=== PATIENT | male | born 1960 | race African-American/Black ===

== ENCOUNTER 2018-05-24 08:04 | Inpatient (IN) | payer MEDICAID ==
[~2018-05-24] VITALS: Ht 182.9 cm; Wt 177.4 kg
[~2018-05-24 08:04] MED LIST: ASPI-986 PO; ATOR-2 PO; CARV25TA47 PO; FERR-63 PO; FURO80TA3 PO; INS7030 SUBCUT
[2018-05-24] MEDS ORDERED: ALBUTEROL (0.5%) 2.5MG/0.5ML NEB HHN ONE (08:30)
[2018-05-24] MEDS ORDERED: IPRATROPIUM BROMIDE (0.02%) 0.5MG/2.5ML NEB HHN ONE (08:30)
[2018-05-24] MEDS ORDERED: ALBUTEROL (0.083%) 2.5MG/3ML NEB ONE ×2 (08:30→09:54)
[2018-05-24] MEDS ORDERED: ALBUTEROL (0.083%) 2.5MG/3ML NEB HHN ONE ×2 (08:30→09:45)
[2018-05-24] MEDS ORDERED: IPRATROPIUM BROMIDE (0.02%) 0.5MG/2.5ML NEB ONE (08:31)
[2018-05-24 08:50] LABS: BASOPHILS % 0.6 % (0.0-2.0); EOSINOPHILS % 3.1 % (0.0-5.0); HEMATOCRIT. 31.8 % (42.0-52.0); HEMOGLOBIN. 10.5 g/dL (14.0-18.0); LYMPHOCYTES % 33.5 % (20.0-50.0); MEAN CORPUSCULAR HEMOGLOBIN 30.5 pg (28.0-32.0); MEAN CORPUSCULAR VOLUME 92.2 fL (80.0-94.0); MONOCYTES % 4.2 % (2.0-8.0); NEUTROPHILS % 58.6 % (40.0-76.0); PLATELET 562 x1000/uL (130-400); RED BLOOD CELL COUNT 3.45 mill/uL (4.7-6.1); RED CELL DISTRIBUTION WIDTH 13.9 % (11.6-14.6)
[2018-05-24 08:52] LABS: CHLORIDE 108 mEq/L (98-107)
[2018-05-24] MEDS ORDERED: SODIUM BICARBONATE 8.4% 1 MEQ/ML 50ML SYR IV ONE (09:45)
[2018-05-24] MEDS ORDERED: INSULIN REGULAR (HUMULIN R) 300UNITS/3ML IV ONE (09:45)
[2018-05-24] MEDS ORDERED: FUROSEMIDE 100MG/10ML VIAL IV ONE (09:45)
[2018-05-24] MEDS ORDERED: METHYLPREDNISOLONE SOD SUCC 125 MG/2 ML VIAL IV ONE (09:45)
[2018-05-24 10:45] LABS: BG BASE EXCESS -1.5 mmol/L (-2.0-2.0); BG BILEVEL POS AIRWAY PRESSURE 24/5; BG CARBOXYHEMOGLOBIN 0.3 % (0.5-1.5); BG DEOXYHEMOGLOBIN 0.7 % (0.0-5.0); BG FRACTION INSPIRED OXYGEN 75; BG HCO3 ACT 24.1 mmol/L (22.0-26.0); BG METHEMOGLOBIN 0.8 % (0.0-1.5); BG OXYGEN SATURATION 99.3 % (92.0-98.5); BG OXYHEMOGLOBIN 98.2 % (94.0-97.0); BG PCO2 44.2 mmHg (35.0-45.0); BG PH 7.354 (7.350-7.450); BG PO2 266.1 mmHg (75.0-100.0); BG SAMPLE SITE RIGHT RADIAL; BG VENT MODE MASK - BIPAP
[2018-05-24 13:12] LABS: CHLORIDE 109 mEq/L (98-107)
[2018-05-24 17:00] VITALS: BP 166/87
[2018-05-24 20:00] VITALS: BP 114/72
[2018-05-24] MEDS ORDERED: ENOXAPARIN 40MG/0.4ML SYR SUBCUT SCH (21:45)
[2018-05-24] MEDS ORDERED: IPRATROPIUM/ALBUTEROL 0.5-3(2.5)MG/3ML NEB INH PRN (21:45)
[2018-05-24] MEDS ORDERED: CARVEDILOL 25MG TABLET PO SCH (21:45)
[2018-05-24] MEDS ORDERED: ONDANSETRON HCL 4MG/2ML INJ IV PRN (21:45)
[2018-05-24] MEDS ORDERED: GUAIFENESIN/CODEINE 200-20MG/10ML UDC PO PRN (21:45)
[2018-05-24] MEDS ORDERED: ACETAMINOPHEN 325MG TABLET PO PRN (21:45)
[2018-05-24 22:00] VITALS: BP 114/72
[2018-05-24] MEDS: ATORVASTATIN CALCIUM 40MG TABLET PO SCH (22:14)
[2018-05-24] MEDS: FERROUS SULFATE 325MG TABLET PO SCH (22:14)
[2018-05-24] MEDS ORDERED: DEXTROSE 50% WATER 50ML SYRINGE IV PRN (22:30)
[2018-05-24 23:24] LABS: CREATINE KINASE MB FRACTION 2.4 ng/mL (0.5-3.6)
[2018-05-25] VITALS (7 sets, daily range): BP systolic 112–165; BP diastolic 52–93
[2018-05-25] MEDS: METHYLPREDNISOLONE SOD SUCC 40 MG/ML VIAL IV SCH ×3 (01:14→11:48)
[2018-05-25] MEDS: BLOOD SUGAR DIAGNOSTIC STRIP TEST SCH ×4 (06:06→21:00)
[2018-05-25] MEDS: INSULIN LISPRO 100 UNITS/ML SUBCUT SCH ×5 (06:07→22:20)
[2018-05-25 06:16] LABS: BASOPHILS % 0.1 % (0.0-2.0); HEMATOCRIT. 30.2 % (42.0-52.0); HEMOGLOBIN. 9.9 g/dL (14.0-18.0); MEAN CORPUSCULAR VOLUME 91.6 fL (80.0-94.0); MEAN PLATELET VOLUME 7.6 fl (7.4-10.4); MONOCYTES % 1.8 % (2.0-8.0); NEUTROPHILS % 89.1 % (40.0-76.0); PLATELET 463 x1000/uL (130-400); RED CELL DISTRIBUTION WIDTH 13.5 % (11.6-14.6)
[2018-05-25 06:50] LABS: CHLORIDE 106 mEq/L (98-107)
[2018-05-25 07:08] LABS: CREATINE KINASE 65 IU/L (39-308)
[2018-05-25 07:10] LABS: CREATINE KINASE MB FRACTION 2.2 ng/mL (0.5-3.6)
[2018-05-25] MEDS: INS NPH/REG HM 70-30 100 UNITS/ML 10ML VIAL (HUMULIN 70-30) SUBCUT SCH ×2 (09:50→18:05)
[2018-05-25] MEDS: ASPIRIN 81MG TABLET PO SCH (09:50)
[2018-05-25] MEDS: CLONIDINE 0.1MG TABLET PO PRN ×2 (09:54→18:11)
[2018-05-25] MEDS: CARVEDILOL 12.5MG TABLET PO SCH ×2 (09:55→22:07)
[2018-05-25] MEDS: ENOXAPARIN 40MG/0.4ML SYR SUBCUT SCH ×2 (09:56→22:07)
[2018-05-25] MEDS: FERROUS SULFATE 325MG TABLET PO SCH (10:00)
[2018-05-25] MEDS ORDERED: DEXTROSE 50% WATER 50ML SYRINGE IV PRN (14:00)
[2018-05-25] MEDS ORDERED: INSULIN LISPRO 100 UNITS/ML SUBCUT SCH (14:30)
[2018-05-25] MEDS ORDERED: BLOOD SUGAR DIAGNOSTIC STRIP TEST SCH (16:45)
[2018-05-25 19:04] LABS: BG BASE EXCESS 0.1 mmol/L (-2.0-2.0); BG CARBOXYHEMOGLOBIN 0.3 % (0.5-1.5); BG DEOXYHEMOGLOBIN 4.7 % (0.0-5.0); BG FRACTION INSPIRED OXYGEN 21; BG HCO3 ACT 25.6 mmol/L (22.0-26.0); BG METHEMOGLOBIN 0.4 % (0.0-1.5); BG OXYGEN SATURATION 95.3 % (92.0-98.5); BG OXYHEMOGLOBIN 94.6 % (94.0-97.0); BG PCO2 45.1 mmHg (35.0-45.0); BG PH 7.372 (7.350-7.450); BG PO2 77.3 mmHg (75.0-100.0); BG SAMPLE SITE OTHER; BG TOTAL HEMOGLOBIN 10.7 g/dL (12.0-18.0); BG VENT MODE ROOM AIR
[2018-05-25] MEDS: ATORVASTATIN CALCIUM 40MG TABLET PO SCH (22:06)
[2018-05-26] VITALS: BP 145/80
[2018-05-26 04:00] VITALS: BP 148/85
[2018-05-26] MEDS: BLOOD SUGAR DIAGNOSTIC STRIP TEST SCH ×2 (06:01→12:40)
[2018-05-26] MEDS: INSULIN LISPRO 100 UNITS/ML SUBCUT SCH ×4 (06:18→13:03)
[2018-05-26 06:47] LABS: BASOPHILS % 0.2 % (0.0-2.0); HEMATOCRIT. 29.8 % (42.0-52.0); HEMOGLOBIN. 9.6 g/dL (14.0-18.0); LYMPHOCYTES % 16.9 % (20.0-50.0); MEAN CORPUSCULAR HEMOGLOBIN 29.7 pg (28.0-32.0); MEAN CORPUSCULAR VOLUME 92.5 fL (80.0-94.0); MEAN PLATELET VOLUME 7.5 fl (7.4-10.4); MONOCYTES % 5.6 % (2.0-8.0); NEUTROPHILS % 77.3 % (40.0-76.0); PLATELET 479 x1000/uL (130-400); RED BLOOD CELL COUNT 3.22 mill/uL (4.7-6.1); RED CELL DISTRIBUTION WIDTH 13.5 % (11.6-14.6)
[2018-05-26 07:08] LABS: CHLORIDE 105 mEq/L (98-107)
[2018-05-26 08:00] VITALS: BP 155/92
[2018-05-26] MEDS: INS NPH/REG HM 70-30 100 UNITS/ML 10ML VIAL (HUMULIN 70-30) SUBCUT SCH (08:47)
[2018-05-26] MEDS: ASPIRIN 81MG TABLET PO SCH (08:59)
[2018-05-26] MEDS: FERROUS SULFATE 325MG TABLET PO SCH (08:59)
[2018-05-26] MEDS: ENOXAPARIN 40MG/0.4ML SYR SUBCUT SCH (09:00)
[2018-05-26] MEDS ORDERED: PREDNISONE 20MG TABLET PO SCH (09:00)
[2018-05-26] MEDS: CARVEDILOL 12.5MG TABLET PO SCH (09:00)
[2018-05-26 12:00] VITALS: BP 150/90
[2018-05-26 16:04] VITALS: BP 154/83
== END 2018-05-26 17:45 | disposition home or self-care (01) | DRG 190 ==
LOC: ER 08:44 → EDBEDREQTM 10:11 → EDBEDREQ 10:11 → 5WST 10:49 → EDBEDREQSVC 10:51 → EDBEDREQTM 10:51 → ENRESERV 12:35
PROVIDERS: ADMIT Internal Medicine; ATTEND Internal Medicine
PROC: 5A09357 Assistance with Respiratory Ventilation, Less than 24 Consecutive Hours, Continuous Positive Airway Pressure (ICD-10-PCS; principal; 2018-05-24)
DX: I21.4 Non-ST elevation (NSTEMI) myocardial infarction (principal); J96.00 Acute respiratory failure, unspecified whether with hypoxia or hypercapnia; I50.43 Acute on chronic combined systolic (congestive) and diastolic (congestive) heart failure; E87.4 Mixed disorder of acid-base balance; K31.84 Gastroparesis; E11.51 Type 2 diabetes mellitus with diabetic peripheral angiopathy without gangrene; E11.43 Type 2 diabetes mellitus with diabetic autonomic (poly)neuropathy; E87.5 Hyperkalemia; E11.65 Type 2 diabetes mellitus with hyperglycemia; I11.0 Hypertensive heart disease with heart failure; I49.3 Ventricular premature depolarization; J44.1 Chronic obstructive pulmonary disease with (acute) exacerbation; G47.33 Obstructive sleep apnea (adult) (pediatric); E66.09 Other obesity due to excess calories; E78.5 Hyperlipidemia, unspecified; I25.10 Atherosclerotic heart disease of native coronary artery without angina pectoris; I25.5 Ischemic cardiomyopathy; K21.9 Gastro-esophageal reflux disease without esophagitis; Z68.42 Body mass index [BMI] 45.0-49.9, adult; I25.2 Old myocardial infarction; Z79.82 Long term (current) use of aspirin; Z79.4 Long term (current) use of insulin; Z79.899 Other long term (current) drug therapy; Z89.512 Acquired absence of left leg below knee; Z95.5 Presence of coronary angioplasty implant and graft; Z68.43 Body mass index [BMI] 50.0-59.9, adult
CPT/HCPCS: 36415; 36600; 71045; 80048; 82375; 82550; 82553; 82805; 82962; 83036; 83880; 84484; 93005; 93306; 93970; 96374; 96375; 99291; J1650; J1815; J1940; J2920; J2930; J3490; J7512; J7611; J7620

== ENCOUNTER 2018-07-05 07:14 | Emergency (ER) | payer MEDICAID ==
[~2018-07-05] VITALS: Ht 182.9 cm; Wt 153.0 kg
[2018-07-05] MEDS ORDERED: ALBUTEROL (0.083%) 2.5MG/3ML NEB HHN STA (07:38)
[2018-07-05 08:08] LABS: BASOPHILS % 1.1 % (0.0-2.0); EOSINOPHILS % 2.3 % (0.0-5.0); HEMATOCRIT. 31.4 % (42.0-52.0); HEMOGLOBIN. 10.3 g/dL (14.0-18.0); LYMPHOCYTES % 36.1 % (20.0-50.0); MEAN CORPUSCULAR HEMOGLOBIN 29.9 pg (28.0-32.0); MEAN CORPUSCULAR VOLUME 91.6 fL (80.0-94.0); MEAN PLATELET VOLUME 7.4 fl (7.4-10.4); MONOCYTES % 5.5 % (2.0-8.0); PLATELET 380 x1000/uL (130-400); RED BLOOD CELL COUNT 3.43 mill/uL (4.7-6.1); RED CELL DISTRIBUTION WIDTH 13.3 % (11.6-14.6)
[2018-07-05 08:12] LABS: CHLORIDE 102 mEq/L (98-107)
[2018-07-05] MEDS ORDERED: FUROSEMIDE 20MG/2ML VIAL IVP ONE (11:00)
[2018-07-05 11:20] VITALS: BP 143/53
== END 2018-07-05 12:34 | disposition home or self-care (01) ==
LOC: ER 07:14
DX: R06.00 Dyspnea, unspecified (principal); J44.9 Chronic obstructive pulmonary disease, unspecified; I11.0 Hypertensive heart disease with heart failure; I50.9 Heart failure, unspecified; E11.9 Type 2 diabetes mellitus without complications; Z79.82 Long term (current) use of aspirin
CPT/HCPCS: 36415; 71045; 80048; 82962; 83880; 84484; 85025; 93005; 94640; 96374; 99284; J1940; J7611; Z7610

== ENCOUNTER 2018-09-03 14:24 | Inpatient (IN) | payer MEDICAID ==
[~2018-09-03] VITALS: Ht 182.9 cm; Wt 166.9 kg
[2018-09-03] MEDS ORDERED: ALBUTEROL (0.083%) 2.5MG/3ML NEB HHN STA (14:44)
[2018-09-03] MEDS ORDERED: METHYLPREDNISOLONE SOD SUCC 125 MG/2 ML VIAL IV STA (14:44)
[2018-09-03] MEDS ORDERED: IPRATROPIUM BROMIDE (0.02%) 0.5MG/2.5ML NEB HHN STA (14:44)
[2018-09-03] MEDS ORDERED: ALBUTEROL (0.5%) 2.5MG/0.5ML NEB HHN ONE (14:54)
[2018-09-03 15:13] LABS: BASOPHILS % 0.6 % (0.0-2.0); EOSINOPHILS % 3.8 % (0.0-5.0); HEMOGLOBIN. 9.1 g/dL (14.0-18.0); LYMPHOCYTES % 28.3 % (20.0-50.0); MEAN CORPUSCULAR HEMOGLOBIN 30.5 pg (28.0-32.0); MEAN CORPUSCULAR VOLUME 93.8 fL (80.0-94.0); MONOCYTES % 4.3 % (2.0-8.0); PLATELET 419 x1000/uL (130-400); RED BLOOD CELL COUNT 2.99 mill/uL (4.7-6.1); RED CELL DISTRIBUTION WIDTH 13.3 % (11.6-14.6)
[2018-09-03 15:18] LABS: CHLORIDE 105 mEq/L (98-107)
[2018-09-03] MEDS ORDERED: FUROSEMIDE 20MG/2ML VIAL IVP ONE (15:45)
[2018-09-03] MEDS ORDERED: ENALAPRIL 2.5MG/2ML VIAL 2ML IV ONE (15:45)
[2018-09-03 15:54] LABS: BG BASE EXCESS -1.3 mmol/L (-2.0-2.0); BG BILEVEL POS AIRWAY PRESSURE 15/5; BG CARBOXYHEMOGLOBIN 0.3 % (0.5-1.5); BG DEOXYHEMOGLOBIN 2.1 % (0.0-5.0); BG FRACTION INSPIRED OXYGEN 40; BG METHEMOGLOBIN 0.2 % (0.0-1.5); BG OXYGEN SATURATION 97.9 % (92.0-98.5); BG OXYHEMOGLOBIN 97.4 % (94.0-97.0); BG PCO2 42.8 mmHg (35.0-45.0); BG PH 7.367 (7.350-7.450); BG PO2 112.6 mmHg (75.0-100.0); BG SAMPLE SITE RIGHT RADIAL; BG TOTAL HEMOGLOBIN 10.1 g/dL (12.0-18.0); BG VENT MODE MASK - BIPAP; BG VENT RATE 16 set
[2018-09-03] MEDS ORDERED: ENOXAPARIN 40MG/0.4ML SYR SUBCUT SCH (16:15)
[2018-09-03] MEDS ORDERED: CLONIDINE 0.1MG TABLET PO PRN (16:15)
[2018-09-03] MEDS ORDERED: HYDROCODONE/ACETAMINOPHEN 5/325MG TABLET PO PRN (16:15)
[2018-09-03] MEDS ORDERED: ONDANSETRON HCL 4MG/2ML INJ IV PRN (16:15)
[2018-09-03] MEDS ORDERED: DOCUSATE SODIUM 100MG CAPSULE PO PRN (16:15)
[2018-09-03] MEDS ORDERED: ACETAMINOPHEN 325MG TABLET PO PRN (16:15)
[2018-09-03] MEDS ORDERED: MAGNESIUM/ALUMINUM HYDROXIDE/SIMETHICONE 30ML UDC PO PRN (16:15)
[2018-09-03] MEDS ORDERED: IPRATROPIUM/ALBUTEROL 0.5-3(2.5)MG/3ML NEB INH PRN (16:15)
[2018-09-03] MEDS ORDERED: GUAIFENESIN 200MG/10ML SUGAR FREE UDC PO PRN (16:15)
[2018-09-03 16:59] VITALS: BP 126/95
[2018-09-03 18:00] VITALS: BP 145/92
[2018-09-03] MEDS ORDERED: DEXTROSE 50% WATER 50ML SYRINGE IV PRN (18:00)
[2018-09-03 18:16] LABS: CLARITY URINE CLEAR (CLEAR); COLOR URINE YELLOW (YELLOW); KETONES URINE NEGATIVE (NEGATIVE); LEUKOCYTE ESTERASE URINE NEGATIVE (NEGATIVE); NITRITE URINE NEGATIVE (NEGATIVE); OCCULT BLOOD URINE NEGATIVE (NEGATIVE); PROTEIN URINE NEGATIVE (NEGATIVE); UROBILINOGEN URINE 0.2 E.U./dL (0.2-1.0)
[2018-09-03 18:26] LABS: *AMPHETAMINES SCREEN URINE NEGATIVE (NEGATIVE); *BARBITURATES SCREEN URINE NEGATIVE (NEGATIVE); *BENZODIAZEPINES SCREEN URINE NEGATIVE (NEGATIVE); *COCAINE SCREEN URINE PRESUMTIVE POSITIVE (NEGATIVE); METHADONE URINE SCREEN NEGATIVE (NEGATIVE); OPIATES URINE SCREEN NEGATIVE (NEGATIVE)
[2018-09-03 18:27] LABS: CANNABINOID URINE SCREEN NEGATIVE (NEGATIVE); PHENCYCLIDINE URINE SCREEN NEGATIVE (NEGATIVE)
[2018-09-03] MEDS: INSULIN LISPRO 100 UNITS/ML SUBCUT SCH ×2 (18:37→21:50)
[2018-09-03 20:00] VITALS: BP 151/82
[2018-09-03] MEDS ORDERED: INSULIN LISPRO 100 UNITS/ML SUBCUT SCH ×2 (21:00)
[2018-09-03] MEDS ORDERED: ENOXAPARIN 30MG/0.3ML SYR SUBCUT SCH (21:00)
[2018-09-03 21:20] LABS: CHLORIDE 106 mEq/L (98-107)
[2018-09-03] MEDS: ENOXAPARIN 40MG/0.4ML SYR SUBCUT SCH (21:47)
[2018-09-03] MEDS: BLOOD SUGAR DIAGNOSTIC STRIP TEST SCH (21:51)
[2018-09-03 22:00] VITALS: BP 130/77
[2018-09-04] VITALS (11 sets, daily range): BP systolic 100–154; BP diastolic 45–91
[2018-09-04 00:03] LABS: CREATINE KINASE 40 IU/L (39-308)
[2018-09-04 00:04] LABS: CREATINE KINASE MB FRACTION < 1.0 ng/mL (0.5-3.6)
[2018-09-04] MEDS: BLOOD SUGAR DIAGNOSTIC STRIP TEST SCH ×4 (07:03→20:39)
[2018-09-04] MEDS: INSULIN LISPRO 100 UNITS/ML SUBCUT SCH ×4 (07:03→20:49)
[2018-09-04 07:47] LABS: BASOPHILS % 0.2 % (0.0-2.0); HEMATOCRIT. 28.8 % (42.0-52.0); HEMOGLOBIN. 9.3 g/dL (14.0-18.0); LYMPHOCYTES % 9.2 % (20.0-50.0); MEAN PLATELET VOLUME 7.6 fl (7.4-10.4); MONOCYTES % 1.1 % (2.0-8.0); NEUTROPHILS % 89.5 % (40.0-76.0); PLATELET 411 x1000/uL (130-400); RED BLOOD CELL COUNT 3.09 mill/uL (4.7-6.1); RED CELL DISTRIBUTION WIDTH 13.6 % (11.6-14.6)
[2018-09-04 08:07] LABS: HDL CHOLESTEROL 53 mg/dL (40-59)
[2018-09-04 08:09] LABS: LDL CHOLESTEROL 143 mg/dL (5-100)
[2018-09-04 08:11] LABS: CREATINE KINASE 40 IU/L (39-308)
[2018-09-04 08:13] LABS: CREATINE KINASE MB FRACTION < 1.0 ng/mL (0.5-3.6)
[2018-09-04] MEDS: ENOXAPARIN 40MG/0.4ML SYR SUBCUT SCH ×2 (08:30→20:47)
[2018-09-04] MEDS: FUROSEMIDE 40MG/4ML VIAL IV SCH ×2 (08:30→16:39)
[2018-09-04] MEDS: CLOPIDOGREL 75MG TABLET PO SCH (09:33)
[2018-09-04] MEDS: LOSARTAN POTASSIUM 50 MG TABLET PO SCH (09:34)
[2018-09-04] MEDS: ASPIRIN 81MG TABLET PO SCH (09:34)
[2018-09-04] MEDS: INSULIN GLARGINE UD 100 UNITS/ML SYR SUBCUT SCH ×2 (09:36→21:32)
[2018-09-04] MEDS: BUDESONIDE 0.5MG/2ML NEB HHN SCH ×2 (13:39→21:26)
[2018-09-04] MEDS: IPRATROPIUM/ALBUTEROL 0.5-3(2.5)MG/3ML NEB HHN SCH ×2 (13:39→21:26)
[2018-09-04] MEDS ORDERED: ATORVASTATIN CALCIUM 40MG TABLET PO SCH (21:00)
[2018-09-05] VITALS (8 sets, daily range): BP systolic 93–147; BP diastolic 51–81
[2018-09-05] MEDS: IPRATROPIUM/ALBUTEROL 0.5-3(2.5)MG/3ML NEB HHN SCH ×2 (01:21→08:30)
[2018-09-05] MEDS: BLOOD SUGAR DIAGNOSTIC STRIP TEST SCH ×2 (06:04→12:22)
[2018-09-05 07:45] LABS: BASOPHILS % 0.3 % (0.0-2.0); EOSINOPHILS % 0.4 % (0.0-5.0); HEMATOCRIT. 27.2 % (42.0-52.0); HEMOGLOBIN. 8.9 g/dL (14.0-18.0); LYMPHOCYTES % 22.7 % (20.0-50.0); MEAN CORPUSCULAR HEMOGLOBIN 30.4 pg (28.0-32.0); MEAN CORPUSCULAR VOLUME 93.1 fL (80.0-94.0); MEAN PLATELET VOLUME 7.9 fl (7.4-10.4); MONOCYTES % 4.8 % (2.0-8.0); NEUTROPHILS % 71.8 % (40.0-76.0); PLATELET 382 x1000/uL (130-400); RED BLOOD CELL COUNT 2.92 mill/uL (4.7-6.1); RED CELL DISTRIBUTION WIDTH 13.4 % (11.6-14.6)
[2018-09-05 07:46] LABS: CHLORIDE 106 mEq/L (98-107)
[2018-09-05 07:57] LABS: T4 FREE 0.79 ng/dL (0.76-1.46)
[2018-09-05] MEDS: ASPIRIN 81MG TABLET PO SCH (08:29)
[2018-09-05] MEDS: CLOPIDOGREL 75MG TABLET PO SCH (08:29)
[2018-09-05] MEDS: LOSARTAN POTASSIUM 50 MG TABLET PO SCH (08:29)
[2018-09-05] MEDS: INSULIN LISPRO 100 UNITS/ML SUBCUT SCH ×2 (08:29→12:23)
[2018-09-05] MEDS: ENOXAPARIN 40MG/0.4ML SYR SUBCUT SCH (08:29)
[2018-09-05] MEDS: FUROSEMIDE 40MG/4ML VIAL IV SCH (08:29)
[2018-09-05] MEDS: BUDESONIDE 0.5MG/2ML NEB HHN SCH (08:30)
[2018-09-05] MEDS ORDERED: INSULIN GLARGINE UD 100 UNITS/ML SYR SUBCUT SCH (10:00)
== END 2018-09-05 13:35 | disposition home or self-care (01) | DRG 194 ==
LOC: ER 14:24 → 3WST 15:55 → ENRESERV 16:18
PROVIDERS: ADMIT Internal Medicine; ATTEND Internal Medicine
PROC: 5A09357 Assistance with Respiratory Ventilation, Less than 24 Consecutive Hours, Continuous Positive Airway Pressure (ICD-10-PCS; principal; 2018-09-03)
DX: I11.0 Hypertensive heart disease with heart failure (principal); J96.00 Acute respiratory failure, unspecified whether with hypoxia or hypercapnia; E11.10 Type 2 diabetes mellitus with ketoacidosis without coma; J18.9 Pneumonia, unspecified organism; I50.43 Acute on chronic combined systolic (congestive) and diastolic (congestive) heart failure; E11.51 Type 2 diabetes mellitus with diabetic peripheral angiopathy without gangrene; I42.9 Cardiomyopathy, unspecified; Z68.42 Body mass index [BMI] 45.0-49.9, adult; E66.2 Morbid (severe) obesity with alveolar hypoventilation; D64.9 Anemia, unspecified; E78.5 Hyperlipidemia, unspecified; F14.90 Cocaine use, unspecified, uncomplicated; Z60.2 Problems related to living alone; I25.10 Atherosclerotic heart disease of native coronary artery without angina pectoris; Z82.49 Family history of ischemic heart disease and other diseases of the circulatory system; Z83.3 Family history of diabetes mellitus; Z89.512 Acquired absence of left leg below knee; Z91.19 Patient's noncompliance with other medical treatment and regimen; Z95.5 Presence of coronary angioplasty implant and graft; Z99.81 Dependence on supplemental oxygen; Z79.82 Long term (current) use of aspirin; Z79.4 Long term (current) use of insulin; Z79.899 Other long term (current) drug therapy
CPT/HCPCS: 36415; 36600; 71045; 80048; 80061; 80305; 82375; 82550; 82553; 82805; 82962; 83735; 83880; 84439; 84443; 84481; 84484; 93005; 93970; 94640; 94660; 96374; 96375; 99291; J1650; J1815; J1940; J2930; J3490; J7611; J7620; J7626

== ENCOUNTER 2018-11-30 09:21 | Inpatient (IN) | payer MEDICAID ==
[~2018-11-30] VITALS: Ht 182.9 cm; Wt 168.7 kg
[2018-11-30 10:14] LABS: BASOPHILS % 0.5 % (0.0-2.0); HEMATOCRIT. 25.3 % (42.0-52.0); HEMOGLOBIN. 8.3 g/dL (14.0-18.0); MEAN CORPUSCULAR HEMOGLOBIN 30.7 pg (28.0-32.0); MEAN CORPUSCULAR VOLUME 93.8 fL (80.0-94.0); MEAN PLATELET VOLUME 7.4 fl (7.4-10.4); MONOCYTES % 4.1 % (2.0-8.0); NEUTROPHILS % 64.4 % (40.0-76.0); PLATELET 368 x1000/uL (130-400); RED CELL DISTRIBUTION WIDTH 13.8 % (11.6-14.6)
[2018-11-30 10:18] LABS: CHLORIDE 103 mEq/L (98-107)
[2018-11-30] MEDS ORDERED: FUROSEMIDE 40MG/4ML VIAL IVP ONE (11:15)
[2018-11-30 17:10] VITALS: BP 139/92
[2018-11-30 18:00] VITALS: BP 139/92
[2018-11-30] MEDS ORDERED: ONDANSETRON HCL 4MG/2ML INJ IV PRN (19:15)
[2018-11-30] MEDS ORDERED: DOCUSATE SODIUM 100MG CAPSULE PO PRN (19:15)
[2018-11-30] MEDS ORDERED: CLONIDINE 0.1MG TABLET PO PRN (19:15)
[2018-11-30 20:00] VITALS: BP 139/81
[2018-11-30] MEDS ORDERED: DEXTROSE 50% WATER 50ML SYRINGE IV PRN (20:30)
[2018-11-30] MEDS: FUROSEMIDE 40MG/4ML VIAL IVP SCH (20:33)
[2018-11-30] MEDS: ENOXAPARIN 40MG/0.4ML SYR SUBCUT SCH (20:34)
[2018-11-30] MEDS: CARVEDILOL 12.5MG TABLET PO SCH (20:36)
[2018-11-30] MEDS: ATORVASTATIN CALCIUM 40MG TABLET PO SCH (20:36)
[2018-11-30] MEDS: LISINOPRIL 10MG TABLET PO SCH ×2 (20:37→20:50)
[2018-11-30] MEDS: ACETAMINOPHEN 325MG TABLET PO PRN (20:58)
[2018-11-30] MEDS: BLOOD SUGAR DIAGNOSTIC STRIP TEST SCH (21:00)
[2018-11-30] MEDS: INSULIN LISPRO 100 UNITS/ML SUBCUT SCH (21:44)
[2018-11-30] MEDS: INS NPH/REG HM 70-30 100 UNITS/ML 10ML VIAL (HUMULIN 70-30) SUBCUT SCH (21:47)
[2018-11-30 22:00] VITALS: BP 116/57
[2018-11-30 23:59] VITALS: BP 149/98
[2018-12-01] VITALS (12 sets, daily range): BP systolic 94–160; BP diastolic 48–75
[2018-12-01] MEDS: IPRATROPIUM/ALBUTEROL 0.5-3(2.5)MG/3ML NEB HHN SCH ×7 (01:13→23:58)
[2018-12-01 01:29] LABS: CREATINE KINASE 84 IU/L (39-308)
[2018-12-01 01:30] LABS: CREATINE KINASE MB FRACTION < 1.0 ng/mL (0.5-3.6)
[2018-12-01] MEDS: OMEPRAZOLE 20MG CAPSULE EXTENDED RELEASE PO SCH (07:07)
[2018-12-01] MEDS: BLOOD SUGAR DIAGNOSTIC STRIP TEST SCH ×4 (07:07→21:43)
[2018-12-01] MEDS: INSULIN LISPRO 100 UNITS/ML SUBCUT SCH ×4 (07:38→21:00)
[2018-12-01] MEDS: FERROUS SULFATE 325MG TABLET PO SCH (08:18)
[2018-12-01] MEDS: ASPIRIN 81MG TABLET PO SCH (08:19)
[2018-12-01] MEDS: ENOXAPARIN 40MG/0.4ML SYR SUBCUT SCH ×2 (08:19→21:42)
[2018-12-01] MEDS: FUROSEMIDE 40MG/4ML VIAL IVP SCH (08:19)
[2018-12-01] MEDS: INS NPH/REG HM 70-30 100 UNITS/ML 10ML VIAL (HUMULIN 70-30) SUBCUT SCH ×2 (08:22→17:37)
[2018-12-01 08:55] LABS: BASOPHILS % 0.5 % (0.0-2.0); EOSINOPHILS % 3.6 % (0.0-5.0); HEMATOCRIT. 24.6 % (42.0-52.0); HEMOGLOBIN. 8.1 g/dL (14.0-18.0); LYMPHOCYTES % 33.8 % (20.0-50.0); MEAN CORPUSCULAR HEMOGLOBIN 31.1 pg (28.0-32.0); MEAN CORPUSCULAR VOLUME 94.3 fL (80.0-94.0); MEAN PLATELET VOLUME 7.5 fl (7.4-10.4); MONOCYTES % 4.9 % (2.0-8.0); NEUTROPHILS % 57.2 % (40.0-76.0); PLATELET 359 x1000/uL (130-400); RED BLOOD CELL COUNT 2.61 mill/uL (4.7-6.1); RED CELL DISTRIBUTION WIDTH 13.8 % (11.6-14.6)
[2018-12-01] MEDS: LISINOPRIL 10MG TABLET PO SCH ×2 (08:59→21:37)
[2018-12-01] MEDS: CARVEDILOL 12.5MG TABLET PO SCH ×2 (08:59→21:36)
[2018-12-01 09:02] LABS: CHLORIDE 103 mEq/L (98-107)
[2018-12-01 09:11] LABS: CREATINE KINASE 95 IU/L (39-308)
[2018-12-01 09:13] LABS: CREATINE KINASE MB FRACTION < 1.0 ng/mL (0.5-3.6)
[2018-12-01] MEDS: FUROSEMIDE 100MG/10ML VIAL IVP SCH (17:39)
[2018-12-01] MEDS: ATORVASTATIN CALCIUM 40MG TABLET PO SCH (21:36)
[2018-12-02] VITALS (13 sets, daily range): BP systolic 84–128; BP diastolic 45–91
[2018-12-02] MEDS: IPRATROPIUM/ALBUTEROL 0.5-3(2.5)MG/3ML NEB HHN SCH ×5 (04:24→21:16)
[2018-12-02] MEDS: OMEPRAZOLE 20MG CAPSULE EXTENDED RELEASE PO SCH (06:32)
[2018-12-02] MEDS: BLOOD SUGAR DIAGNOSTIC STRIP TEST SCH ×4 (06:32→21:45)
[2018-12-02] MEDS: FUROSEMIDE 100MG/10ML VIAL IVP SCH ×2 (07:15→17:43)
[2018-12-02] MEDS: INSULIN LISPRO 100 UNITS/ML SUBCUT SCH ×4 (07:20→22:00)
[2018-12-02] MEDS: ACETAMINOPHEN 325MG TABLET PO PRN (07:53)
[2018-12-02] MEDS: FERROUS SULFATE 325MG TABLET PO SCH (08:00)
[2018-12-02] MEDS: CARVEDILOL 12.5MG TABLET PO SCH ×3 (08:00→22:03)
[2018-12-02] MEDS: ASPIRIN 81MG TABLET PO SCH (08:00)
[2018-12-02] MEDS: ENOXAPARIN 40MG/0.4ML SYR SUBCUT SCH ×2 (08:01→22:01)
[2018-12-02] MEDS: INS NPH/REG HM 70-30 100 UNITS/ML 10ML VIAL (HUMULIN 70-30) SUBCUT SCH ×2 (08:02→17:42)
[2018-12-02] MEDS: LISINOPRIL 10MG TABLET PO SCH ×3 (09:00→21:59)
[2018-12-02 13:43] LABS: BASOPHILS % 0.4 % (0.0-2.0); HEMATOCRIT. 22.6 % (42.0-52.0); HEMOGLOBIN. 7.5 g/dL (14.0-18.0); LYMPHOCYTES % 35.5 % (20.0-50.0); MEAN CORPUSCULAR HEMOGLOBIN 30.9 pg (28.0-32.0); MEAN CORPUSCULAR VOLUME 93.5 fL (80.0-94.0); MEAN PLATELET VOLUME 7.7 fl (7.4-10.4); MONOCYTES % 4.7 % (2.0-8.0); NEUTROPHILS % 55.4 % (40.0-76.0); PLATELET 331 x1000/uL (130-400); RED BLOOD CELL COUNT 2.41 mill/uL (4.7-6.1)
[2018-12-02 19:32] LABS: *AMPHETAMINES SCREEN URINE NEGATIVE (NEGATIVE); *BARBITURATES SCREEN URINE NEGATIVE (NEGATIVE); *BENZODIAZEPINES SCREEN URINE NEGATIVE (NEGATIVE); *COCAINE SCREEN URINE PRESUMTIVE POSITIVE (NEGATIVE)
[2018-12-02 19:33] LABS: CANNABINOID URINE SCREEN NEGATIVE (NEGATIVE); METHADONE URINE SCREEN NEGATIVE (NEGATIVE); OPIATES URINE SCREEN NEGATIVE (NEGATIVE); PHENCYCLIDINE URINE SCREEN NEGATIVE (NEGATIVE)
[2018-12-02] MEDS: ATORVASTATIN CALCIUM 40MG TABLET PO SCH (21:55)
[2018-12-03] VITALS (11 sets, daily range): BP systolic 105–130; BP diastolic 45–76
[2018-12-03] MEDS: IPRATROPIUM/ALBUTEROL 0.5-3(2.5)MG/3ML NEB HHN SCH ×6 (04:57→20:00)
[2018-12-03] MEDS: OMEPRAZOLE 20MG CAPSULE EXTENDED RELEASE PO SCH (06:15)
[2018-12-03] MEDS: BLOOD SUGAR DIAGNOSTIC STRIP TEST SCH ×4 (07:04→21:31)
[2018-12-03 07:11] LABS: BASOPHILS % 0.3 % (0.0-2.0); EOSINOPHILS % 4.1 % (0.0-5.0); HEMATOCRIT. 23.4 % (42.0-52.0); HEMOGLOBIN. 7.6 g/dL (14.0-18.0); LYMPHOCYTES % 37.3 % (20.0-50.0); MEAN CORPUSCULAR HEMOGLOBIN 30.5 pg (28.0-32.0); MEAN CORPUSCULAR VOLUME 94.1 fL (80.0-94.0); MEAN PLATELET VOLUME 8.1 fl (7.4-10.4); MONOCYTES % 6.1 % (2.0-8.0); NEUTROPHILS % 52.2 % (40.0-76.0); PLATELET 348 x1000/uL (130-400); RED BLOOD CELL COUNT 2.48 mill/uL (4.7-6.1)
[2018-12-03] MEDS: INSULIN LISPRO 100 UNITS/ML SUBCUT SCH ×4 (07:20→21:30)
[2018-12-03] MEDS: FUROSEMIDE 100MG/10ML VIAL IVP SCH (07:56)
[2018-12-03] MEDS: FERROUS SULFATE 325MG TABLET PO SCH (08:58)
[2018-12-03] MEDS: ASPIRIN 81MG TABLET PO SCH (08:58)
[2018-12-03] MEDS: ENOXAPARIN 40MG/0.4ML SYR SUBCUT SCH ×2 (08:58→21:31)
[2018-12-03] MEDS: INS NPH/REG HM 70-30 100 UNITS/ML 10ML VIAL (HUMULIN 70-30) SUBCUT SCH ×2 (09:00→17:05)
[2018-12-03] MEDS: CARVEDILOL 12.5MG TABLET PO SCH ×2 (09:00→21:28)
[2018-12-03] MEDS: ATORVASTATIN CALCIUM 40MG TABLET PO SCH (21:29)
[2018-12-04] VITALS (7 sets, daily range): BP systolic 91–120; BP diastolic 38–73
[2018-12-04] MEDS: IPRATROPIUM/ALBUTEROL 0.5-3(2.5)MG/3ML NEB HHN SCH ×3 (00:42→09:45)
[2018-12-04] MEDS: BLOOD SUGAR DIAGNOSTIC STRIP TEST SCH ×2 (06:01→11:53)
[2018-12-04 06:35] LABS: BASOPHILS % 0.5 % (0.0-2.0); EOSINOPHILS % 3.7 % (0.0-5.0); HEMATOCRIT. 21.8 % (42.0-52.0); HEMOGLOBIN. 7.2 g/dL (14.0-18.0); LYMPHOCYTES % 39.5 % (20.0-50.0); MEAN CORPUSCULAR HEMOGLOBIN 31.1 pg (28.0-32.0); MEAN CORPUSCULAR VOLUME 94.1 fL (80.0-94.0); MEAN PLATELET VOLUME 7.8 fl (7.4-10.4); MONOCYTES % 6.5 % (2.0-8.0); NEUTROPHILS % 49.8 % (40.0-76.0); PLATELET 328 x1000/uL (130-400); RED BLOOD CELL COUNT 2.31 mill/uL (4.7-6.1); RED CELL DISTRIBUTION WIDTH 14.3 % (11.6-14.6)
[2018-12-04] MEDS: INSULIN LISPRO 100 UNITS/ML SUBCUT SCH ×2 (07:20→11:53)
[2018-12-04] MEDS: ASPIRIN 81MG TABLET PO SCH (08:48)
[2018-12-04] MEDS: FERROUS SULFATE 325MG TABLET PO SCH (08:49)
[2018-12-04] MEDS: CARVEDILOL 12.5MG TABLET PO SCH (08:49)
[2018-12-04] MEDS: ENOXAPARIN 40MG/0.4ML SYR SUBCUT SCH (08:50)
[2018-12-04] MEDS: INS NPH/REG HM 70-30 100 UNITS/ML 10ML VIAL (HUMULIN 70-30) SUBCUT SCH (08:51)
[2018-12-04] MEDS ORDERED: FAMOTIDINE 20MG TABLET PO SCH (09:00)
== END 2018-12-04 12:32 | disposition home or self-care (01) | DRG 190 ==
LOC: ER 09:21 → 3WST 11:10 → ENRESERV 15:58
PROVIDERS: ADMIT Internal Medicine; ATTEND Internal Medicine
DX: I21.4 Non-ST elevation (NSTEMI) myocardial infarction (principal); J96.01 Acute respiratory failure with hypoxia; I50.23 Acute on chronic systolic (congestive) heart failure; N17.9 Acute kidney failure, unspecified; I25.10 Atherosclerotic heart disease of native coronary artery without angina pectoris; E78.5 Hyperlipidemia, unspecified; E11.65 Type 2 diabetes mellitus with hyperglycemia; D64.9 Anemia, unspecified; F19.10 Other psychoactive substance abuse, uncomplicated; G47.33 Obstructive sleep apnea (adult) (pediatric); E11.22 Type 2 diabetes mellitus with diabetic chronic kidney disease; I13.0 Hypertensive heart and chronic kidney disease with heart failure and stage 1 through stage 4 chronic kidney disease, or unspecified chronic kidney disease; N18.9 Chronic kidney disease, unspecified; I25.5 Ischemic cardiomyopathy; Z95.5 Presence of coronary angioplasty implant and graft; Z89.519 Acquired absence of unspecified leg below knee; Z82.49 Family history of ischemic heart disease and other diseases of the circulatory system; Z89.512 Acquired absence of left leg below knee; Z68.43 Body mass index [BMI] 50.0-59.9, adult
CPT/HCPCS: 36415; 71045; 80048; 80061; 80305; 82550; 82553; 82962; 83036; 83735; 83880; 84484; 93005; 93970; 94640; 99291; J1650; J1815; J1940; J7620

== ENCOUNTER 2018-12-06 06:01 | Inpatient (IN) | payer MEDICAID ==
[~2018-12-06] VITALS: Ht 182.9 cm; Wt 177.4 kg
[2018-12-06] VITALS (8 sets, daily range): BP systolic 92–161; BP diastolic 65–96
[2018-12-06] MEDS ORDERED: METHYLPREDNISOLONE SOD SUCC 125 MG/2 ML VIAL IV STA (06:28)
[2018-12-06] MEDS ORDERED: ALBUTEROL (0.083%) 2.5MG/3ML NEB HHN STA (06:28)
[2018-12-06] MEDS ORDERED: IPRATROPIUM BROMIDE (0.02%) 0.5MG/2.5ML NEB HHN STA (06:28)
[2018-12-06] MEDS ORDERED: MAGNESIUM 2 G PREMIX 50 ML IV STA (06:28)
[2018-12-06] MEDS ORDERED: FUROSEMIDE 40MG/4ML VIAL IVP ONE (06:45)
[2018-12-06] MEDS ORDERED: LEVOFLOXACIN 500MG PREMIX 100 ML IV ONE (07:00)
[2018-12-06 07:36] LABS: BASOPHILS % 0.7 % (0.0-2.0); EOSINOPHILS % 3.4 % (0.0-5.0); HEMATOCRIT. 22.1 % (42.0-52.0); HEMOGLOBIN. 7.2 g/dL (14.0-18.0); LYMPHOCYTES % 31.4 % (20.0-50.0); MEAN CORPUSCULAR HEMOGLOBIN 31.1 pg (28.0-32.0); MEAN CORPUSCULAR VOLUME 95.5 fL (80.0-94.0); MEAN PLATELET VOLUME 8.4 fl (7.4-10.4); MONOCYTES % 5.6 % (2.0-8.0); NEUTROPHILS % 58.9 % (40.0-76.0); PLATELET 345 x1000/uL (130-400); RED BLOOD CELL COUNT 2.31 mill/uL (4.7-6.1); RED CELL DISTRIBUTION WIDTH 14.4 % (11.6-14.6)
[2018-12-06 07:43] LABS: INR 1.1
[2018-12-06 07:44] LABS: CHLORIDE 104 mEq/L (98-107)
[2018-12-06 08:11] LABS: BG BASE EXCESS 2.2 mmol/L (-2.0-2.0); BG BILEVEL POS AIRWAY PRESSURE 15/5; BG CARBOXYHEMOGLOBIN 0.3 % (0.5-1.5); BG DEOXYHEMOGLOBIN 0.9 % (0.0-5.0); BG FRACTION INSPIRED OXYGEN 40; BG HCO3 ACT 28.1 mmol/L (22.0-26.0); BG METHEMOGLOBIN 0.3 % (0.0-1.5); BG OXYGEN SATURATION 99.1 % (92.0-98.5); BG OXYHEMOGLOBIN 98.5 % (94.0-97.0); BG PCO2 50.5 mmHg (35.0-45.0); BG PH 7.363 (7.350-7.450); BG PO2 162.4 mmHg (75.0-100.0); BG SAMPLE SITE RIGHT RADIAL; BG TOTAL HEMOGLOBIN 9.2 g/dL (12.0-18.0); BG VENT MODE MASK - BIPAP
[2018-12-06] MEDS ORDERED: DEXTROSE 50% WATER 50ML SYRINGE IV PRN (09:00)
[2018-12-06] MEDS: BLOOD SUGAR DIAGNOSTIC STRIP TEST SCH ×4 (09:00→21:00)
[2018-12-06] MEDS ORDERED: FUROSEMIDE 40MG/4ML VIAL IVP SCH ×3 (09:00→15:45)
[2018-12-06] MEDS ORDERED: IPRATROPIUM/ALBUTEROL 0.5-3(2.5)MG/3ML NEB HHN PRN (09:00)
[2018-12-06] MEDS ORDERED: INSULIN GLARGINE UD 100 UNITS/ML SYR SUBCUT SCH (10:00)
[2018-12-06] MEDS: IPRATROPIUM/ALBUTEROL 0.5-3(2.5)MG/3ML NEB HHN SCH ×3 (10:19→20:43)
[2018-12-06] MEDS ORDERED: OMEP20CA5 MT (10:42)
[2018-12-06] MEDS ORDERED: FURO40TA5 MT (10:42)
[2018-12-06] MEDS ORDERED: ASPI-1158 PO (10:42)
[2018-12-06] MEDS: LOSARTAN POTASSIUM 50 MG TABLET PO SCH (11:10)
[2018-12-06] MEDS: INSULIN LISPRO 100 UNITS/ML SUBCUT SCH ×3 (12:23→21:55)
[2018-12-06] MEDS ORDERED: FUROSEMIDE 100MG/10ML VIAL IVP SCH (17:15)
[2018-12-06] MEDS: BUDESONIDE 0.5MG/2ML NEB HHN SCH (20:43)
[2018-12-06 20:49] LABS: CLARITY URINE CLEAR (CLEAR); COLOR URINE YELLOW (YELLOW); KETONES URINE NEGATIVE (NEGATIVE); LEUKOCYTE ESTERASE URINE NEGATIVE (NEGATIVE); NITRITE URINE NEGATIVE (NEGATIVE); OCCULT BLOOD URINE NEGATIVE (NEGATIVE); PROTEIN URINE NEGATIVE (NEGATIVE); SPECIFIC GRAVITY URINE 1.009 (1.005-1.030); UROBILINOGEN URINE 0.2 E.U./dL (0.2-1.0)
[2018-12-06 21:22] LABS: *BARBITURATES SCREEN URINE NEGATIVE (NEGATIVE); *BENZODIAZEPINES SCREEN URINE NEGATIVE (NEGATIVE); *COCAINE SCREEN URINE PRESUMTIVE POSITIVE (NEGATIVE)
[2018-12-06 21:23] LABS: *AMPHETAMINES SCREEN URINE NEGATIVE (NEGATIVE); CANNABINOID URINE SCREEN NEGATIVE (NEGATIVE); METHADONE URINE SCREEN NEGATIVE (NEGATIVE); OPIATES URINE SCREEN NEGATIVE (NEGATIVE); PHENCYCLIDINE URINE SCREEN NEGATIVE (NEGATIVE)
[2018-12-06] MEDS: INSULIN GLARGINE UD 100 UNITS/ML SYR SUBCUT SCH (22:59)
[2018-12-07] VITALS (7 sets, daily range): BP systolic 96–131; BP diastolic 59–82
[2018-12-07] MEDS: IPRATROPIUM/ALBUTEROL 0.5-3(2.5)MG/3ML NEB HHN SCH ×4 (00:23→12:00)
[2018-12-07 06:23] LABS: BASOPHILS % 0.1 % (0.0-2.0); HEMATOCRIT. 22.8 % (42.0-52.0); HEMOGLOBIN. 7.4 g/dL (14.0-18.0); LYMPHOCYTES % 11.3 % (20.0-50.0); MEAN CORPUSCULAR HEMOGLOBIN 30.9 pg (28.0-32.0); MEAN CORPUSCULAR VOLUME 94.5 fL (80.0-94.0); MEAN PLATELET VOLUME 8.5 fl (7.4-10.4); MONOCYTES % 5.1 % (2.0-8.0); NEUTROPHILS % 83.5 % (40.0-76.0); PLATELET 346 x1000/uL (130-400); RED BLOOD CELL COUNT 2.41 mill/uL (4.7-6.1); RED CELL DISTRIBUTION WIDTH 14.6 % (11.6-14.6)
[2018-12-07 06:56] LABS: CHLORIDE 103 mEq/L (98-107)
[2018-12-07 07:10] LABS: CREATINE KINASE 55 IU/L (39-308)
[2018-12-07 07:14] LABS: CREATINE KINASE MB FRACTION < 1.0 ng/mL (0.5-3.6)
[2018-12-07] MEDS ORDERED: FUROSEMIDE 100MG/10ML VIAL IVP SCH (07:15)
[2018-12-07] MEDS: BUDESONIDE 0.5MG/2ML NEB HHN SCH (07:55)
[2018-12-07] MEDS: BLOOD SUGAR DIAGNOSTIC STRIP TEST SCH ×2 (08:15→12:30)
[2018-12-07] MEDS: LOSARTAN POTASSIUM 50 MG TABLET PO SCH (08:29)
[2018-12-07] MEDS: INSULIN LISPRO 100 UNITS/ML SUBCUT SCH ×2 (08:30→12:03)
[2018-12-07] MEDS ORDERED: ASPIRIN 81MG EC TABLET PO SCH (09:00)
[2018-12-07] MEDS: INSULIN GLARGINE UD 100 UNITS/ML SYR SUBCUT SCH (10:09)
== END 2018-12-07 15:55 | disposition home or self-care (01) | DRG 816 ==
LOC: ER 06:01 → 5EST 07:03 → EDBEDREQTM 07:13 → EDBEDREQ 07:13 → ENRESERV 07:36
PROVIDERS: ADMIT Internal Medicine; ATTEND Internal Medicine
PROC: 5A09357 Assistance with Respiratory Ventilation, Less than 24 Consecutive Hours, Continuous Positive Airway Pressure (ICD-10-PCS; principal; 2018-12-06)
DX: T40.5X1A Poisoning by cocaine, accidental (unintentional), initial encounter (principal); J96.00 Acute respiratory failure, unspecified whether with hypoxia or hypercapnia; N17.0 Acute kidney failure with tubular necrosis; I11.0 Hypertensive heart disease with heart failure; I50.23 Acute on chronic systolic (congestive) heart failure; E11.51 Type 2 diabetes mellitus with diabetic peripheral angiopathy without gangrene; E44.1 Mild protein-calorie malnutrition; D64.9 Anemia, unspecified; G47.33 Obstructive sleep apnea (adult) (pediatric); F14.10 Cocaine abuse, uncomplicated; I25.10 Atherosclerotic heart disease of native coronary artery without angina pectoris; E78.5 Hyperlipidemia, unspecified; E78.00 Pure hypercholesterolemia, unspecified; I44.0 Atrioventricular block, first degree; I25.5 Ischemic cardiomyopathy; F19.10 Other psychoactive substance abuse, uncomplicated; J68.0 Bronchitis and pneumonitis due to chemicals, gases, fumes and vapors; E66.01 Morbid (severe) obesity due to excess calories; Z68.43 Body mass index [BMI] 50.0-59.9, adult; Z95.5 Presence of coronary angioplasty implant and graft; Z99.81 Dependence on supplemental oxygen; Z89.512 Acquired absence of left leg below knee; Z87.891 Personal history of nicotine dependence; Z79.82 Long term (current) use of aspirin; Z71.3 Dietary counseling and surveillance; Z71.51 Drug abuse counseling and surveillance of drug abuser; Y92.89 Other specified places as the place of occurrence of the external cause
CPT/HCPCS: 36415; 36600; 71045; 80048; 80305; 81003; 82375; 82550; 82553; 82805; 82962; 83605; 83735; 83880; 84145; 84484; 85379; 93005; 94644; 94660; 96365; 96367; 96375; 99291; J1815; J1940; J1956; J2930; J3475; J7611; J7620; J7626

== ENCOUNTER 2018-12-19 02:18 | Inpatient (IN) | payer MEDICAID ==
[2018-12-19] VITALS (8 sets, daily range): BP systolic 102–122; BP diastolic 67–86
[~2018-12-19] VITALS: Ht 182.9 cm; Wt 179.6 kg
[~2018-12-19 02:18] MED LIST changes: -ASPI-986 PO; +OMEP20CA5 MT
[2018-12-19] MEDS ORDERED: MAGNESIUM 2 G PREMIX 50 ML IV STA (02:23)
[2018-12-19] MEDS ORDERED: IPRATROPIUM BROMIDE (0.02%) 0.5MG/2.5ML NEB HHN STA (02:23)
[2018-12-19] MEDS ORDERED: ALBUTEROL (0.083%) 2.5MG/3ML NEB HHN STA (02:23)
[2018-12-19] MEDS ORDERED: METHYLPREDNISOLONE SOD SUCC 125 MG/2 ML VIAL IV STA (02:23)
[2018-12-19 02:46] LABS: BASOPHILS % 0.7 % (0.0-2.0); EOSINOPHILS % 2.8 % (0.0-5.0); HEMATOCRIT. 23.8 % (42.0-52.0); HEMOGLOBIN. 7.6 g/dL (14.0-18.0); LYMPHOCYTES % 23.6 % (20.0-50.0); MEAN CORPUSCULAR HEMOGLOBIN 30.7 pg (28.0-32.0); MEAN PLATELET VOLUME 7.7 fl (7.4-10.4); MONOCYTES % 4.2 % (2.0-8.0); NEUTROPHILS % 68.7 % (40.0-76.0); PLATELET 372 x1000/uL (130-400); RED BLOOD CELL COUNT 2.48 mill/uL (4.7-6.1)
[2018-12-19 02:49] LABS: CHLORIDE 101 mEq/L (98-107)
[2018-12-19] MEDS ORDERED: FUROSEMIDE 40MG/4ML VIAL IVP ONE (03:15)
[2018-12-19] MEDS ORDERED: SODIUM CHLORIDE 0.9% 500 ML IV ONE (03:15)
[2018-12-19 03:33] LABS: BETA HYDROXYBUTYRATE 0.1 mMol/L (0.0-0.3)
[2018-12-19] MEDS ORDERED: GUAIFENESIN 200MG/10ML SUGAR FREE UDC PO PRN (08:00)
[2018-12-19] MEDS ORDERED: IPRATROPIUM/ALBUTEROL 0.5-3(2.5)MG/3ML NEB HHN PRN (08:00)
[2018-12-19] MEDS ORDERED: HYDRALAZINE 20MG/ML VIAL IV PRN (08:00)
[2018-12-19] MEDS ORDERED: MAGNESIUM/ALUMINUM HYDROXIDE/SIMETHICONE 30ML UDC PO PRN (08:00)
[2018-12-19] MEDS ORDERED: DOCUSATE SODIUM 100MG CAPSULE PO PRN (08:00)
[2018-12-19] MEDS ORDERED: DIPHENHYDRAMINE 50MG/ML VIAL IV PRN (08:00)
[2018-12-19] MEDS ORDERED: LORAZEPAM 2MG/ML CPJ IV PRN (08:00)
[2018-12-19] MEDS ORDERED: HYDROCODONE/ACETAMINOPHEN 10/325MG TABLET PO PRN (08:00)
[2018-12-19] MEDS ORDERED: CLONIDINE 0.1MG TABLET PO PRN (08:00)
[2018-12-19] MEDS ORDERED: MORPHINE SULFATE 2 MG/ML CPJ (NOT FOR IM USE) IV PRN (08:00)
[2018-12-19] MEDS ORDERED: DEXTROSE 50% WATER 50ML SYRINGE IV PRN ×2 (08:00→12:30)
[2018-12-19] MEDS ORDERED: ONDANSETRON HCL 4MG/2ML INJ IV PRN (08:00)
[2018-12-19] MEDS ORDERED: ACETAMINOPHEN 325MG TABLET PO PRN (08:00)
[2018-12-19] MEDS: ENOXAPARIN 40MG/0.4ML SYR SUBCUT SCH ×2 (09:00→20:38)
[2018-12-19] MEDS ORDERED: FUROSEMIDE 40MG/4ML VIAL IVP SCH (09:00)
[2018-12-19] MEDS: FUROSEMIDE 40MG/4ML VIAL IVP SCH ×3 (09:00→17:53)
[2018-12-19] MEDS: IPRATROPIUM/ALBUTEROL 0.5-3(2.5)MG/3ML NEB HHN SCH ×4 (09:21→21:18)
[2018-12-19] MEDS: ASPIRIN 81MG TABLET PO SCH (10:13)
[2018-12-19] MEDS: CARVEDILOL 6.25 MG TABLET PO SCH ×2 (10:13→20:40)
[2018-12-19] MEDS: INSULIN GLARGINE UD 100 UNITS/ML SYR SUBCUT SCH (11:45)
[2018-12-19] MEDS: BLOOD SUGAR DIAGNOSTIC STRIP TEST SCH ×3 (11:54→21:07)
[2018-12-19] MEDS ORDERED: INSULIN LISPRO 100 UNITS/ML SUBCUT SCH (12:20)
[2018-12-19] MEDS: INSULIN LISPRO 100 UNITS/ML SUBCUT SCH ×3 (12:56→21:09)
[2018-12-19] MEDS ORDERED: HYDROCODONE/ACETAMINOPHEN 5/325MG TABLET PO PRN (13:15)
[2018-12-19] MEDS: SODIUM CHLORIDE 0.9% INJ 3ML FLUSH IVF SCH ×2 (14:27→22:00)
[2018-12-19 14:29] LABS: CREATINE KINASE 61 IU/L (39-308)
[2018-12-19 14:30] LABS: CREATINE KINASE MB FRACTION < 1.0 ng/mL (0.5-3.6)
[2018-12-19 18:12] LABS: *BARBITURATES SCREEN URINE NEGATIVE (NEGATIVE); *BENZODIAZEPINES SCREEN URINE NEGATIVE (NEGATIVE); *COCAINE SCREEN URINE NEGATIVE (NEGATIVE)
[2018-12-19 18:14] LABS: *AMPHETAMINES SCREEN URINE NEGATIVE (NEGATIVE); CANNABINOID URINE SCREEN NEGATIVE (NEGATIVE); METHADONE URINE SCREEN NEGATIVE (NEGATIVE); OPIATES URINE SCREEN PRESUMTIVE POSITIVE (NEGATIVE); PHENCYCLIDINE URINE SCREEN NEGATIVE (NEGATIVE)
[2018-12-19] MEDS: ATORVASTATIN CALCIUM 20MG TABLET PO SCH (20:38)
[2018-12-19 23:04] LABS: CREATINE KINASE 66 IU/L (39-308)
[2018-12-19 23:07] LABS: CREATINE KINASE MB FRACTION < 1.0 ng/mL (0.5-3.6)
[2018-12-20] VITALS (17 sets, daily range): BP systolic 94–138; BP diastolic 61–95
[2018-12-20] MEDS: IPRATROPIUM/ALBUTEROL 0.5-3(2.5)MG/3ML NEB HHN SCH ×6 (00:56→21:31)
[2018-12-20] MEDS: SODIUM CHLORIDE 0.9% INJ 3ML FLUSH IVF SCH ×3 (06:00→21:53)
[2018-12-20] MEDS: INSULIN LISPRO 100 UNITS/ML SUBCUT SCH ×4 (07:02→21:05)
[2018-12-20] MEDS: BLOOD SUGAR DIAGNOSTIC STRIP TEST SCH ×4 (07:09→21:25)
[2018-12-20 07:11] LABS: BASOPHILS % 0.1 % (0.0-2.0); HEMOGLOBIN. 7.1 g/dL (14.0-18.0); LYMPHOCYTES % 8.4 % (20.0-50.0); MEAN CORPUSCULAR HEMOGLOBIN 30.3 pg (28.0-32.0); MEAN CORPUSCULAR VOLUME 94.3 fL (80.0-94.0); MEAN PLATELET VOLUME 8.3 fl (7.4-10.4); MONOCYTES % 4.1 % (2.0-8.0); NEUTROPHILS % 87.4 % (40.0-76.0); PLATELET 388 x1000/uL (130-400); RED BLOOD CELL COUNT 2.33 mill/uL (4.7-6.1); RED CELL DISTRIBUTION WIDTH 14.1 % (11.6-14.6)
[2018-12-20 07:53] LABS: LDL CHOLESTEROL 128 mg/dL (5-100)
[2018-12-20 07:56] LABS: HDL CHOLESTEROL 54 mg/dL (40-59)
[2018-12-20] MEDS: FUROSEMIDE 40MG/4ML VIAL IVP SCH ×2 (09:09→17:00)
[2018-12-20] MEDS: ASPIRIN 81MG TABLET PO SCH (09:09)
[2018-12-20] MEDS: CARVEDILOL 6.25 MG TABLET PO SCH ×2 (09:14→21:49)
[2018-12-20] MEDS: ENOXAPARIN 40MG/0.4ML SYR SUBCUT SCH ×2 (09:26→21:03)
[2018-12-20] MEDS: INSULIN GLARGINE UD 100 UNITS/ML SYR SUBCUT SCH (09:30)
[2018-12-20 10:01] LABS: BG BASE EXCESS 0.6 mmol/L (-2.0-2.0); BG CARBOXYHEMOGLOBIN 0.3 % (0.5-1.5); BG DEOXYHEMOGLOBIN 1.3 % (0.0-5.0); BG FRACTION INSPIRED OXYGEN 36; BG METHEMOGLOBIN 0.3 % (0.0-1.5); BG OXYGEN SATURATION 98.7 % (92.0-98.5); BG OXYHEMOGLOBIN 98.1 % (94.0-97.0); BG PCO2 45.6 mmHg (35.0-45.0); BG PH 7.374 (7.350-7.450); BG SAMPLE SITE RIGHT RADIAL; BG TOTAL HEMOGLOBIN 7.8 g/dL (12.0-18.0); BG VENT MODE NASAL CANNULA
[2018-12-20] MEDS ORDERED: SODIUM POLYSTYRENE SULFONATE 15 G/60 ML BOT PO SCH (12:00)
[2018-12-20] MEDS ORDERED: INSULIN LISPRO 100 UNITS/ML SUBCUT SCH (13:30)
[2018-12-20] MEDS ORDERED: FUROSEMIDE 40MG/4ML VIAL IVP NR (15:30)
[2018-12-20] MEDS ORDERED: LACTULOSE 20G/30ML UDC PO NR (20:00)
[2018-12-20] MEDS ORDERED: DEXTROSE 50% WATER 50ML SYRINGE IV NR (20:45)
[2018-12-20] MEDS ORDERED: INSULIN REGULAR (HUMULIN R) UD 100 UNITS/ML SYR IV NR (21:00)
[2018-12-20] MEDS ORDERED: SODIUM POLYSTYRENE SULFONATE 15 G/60 ML BOT PO NR ×2 (21:00→21:30)
[2018-12-20] MEDS: ATORVASTATIN CALCIUM 20MG TABLET PO SCH (21:03)
[2018-12-21] VITALS (12 sets, daily range): BP systolic 112–132; BP diastolic 69–94
[2018-12-21] MEDS: IPRATROPIUM/ALBUTEROL 0.5-3(2.5)MG/3ML NEB HHN SCH ×4 (01:13→11:59)
[2018-12-21 03:05] LABS: BASOPHILS % 0.6 % (0.0-2.0); EOSINOPHILS % 0.4 % (0.0-5.0); HEMATOCRIT. 25.2 % (42.0-52.0); HEMOGLOBIN. 8.7 g/dL (14.0-18.0); LYMPHOCYTES % 18.8 % (20.0-50.0); MEAN CORPUSCULAR HEMOGLOBIN 31.9 pg (28.0-32.0); MEAN CORPUSCULAR VOLUME 92.4 fL (80.0-94.0); MONOCYTES % 5.4 % (2.0-8.0); NEUTROPHILS % 74.8 % (40.0-76.0); PLATELET 387 x1000/uL (130-400); RED BLOOD CELL COUNT 2.73 mill/uL (4.7-6.1); RED CELL DISTRIBUTION WIDTH 14.8 % (11.6-14.6)
[2018-12-21] MEDS: SODIUM CHLORIDE 0.9% INJ 3ML FLUSH IVF SCH ×2 (06:17→14:06)
[2018-12-21] MEDS: BLOOD SUGAR DIAGNOSTIC STRIP TEST SCH ×2 (06:17→11:48)
[2018-12-21] MEDS: INSULIN LISPRO 100 UNITS/ML SUBCUT SCH ×2 (06:50→11:47)
[2018-12-21] MEDS: FUROSEMIDE 40MG/4ML VIAL IVP SCH (09:19)
[2018-12-21] MEDS: ASPIRIN 81MG TABLET PO SCH (09:19)
[2018-12-21] MEDS: CARVEDILOL 6.25 MG TABLET PO SCH (09:19)
[2018-12-21] MEDS: ENOXAPARIN 40MG/0.4ML SYR SUBCUT SCH (09:20)
[2018-12-21] MEDS ORDERED: INSULIN GLARGINE UD 100 UNITS/ML SYR SUBCUT SCH (10:00)
[2018-12-21] MEDS ORDERED: BUDESONIDE 0.5MG/2ML NEB HHN SCH (14:45)
[2018-12-21] MEDS ORDERED: GUAIFENESIN 600MG ER TABLET PO SCH (21:00)
== END 2018-12-21 14:32 | disposition home or self-care (01) | DRG 133 ==
LOC: ER 02:18 → 3WST 03:22 → EDBEDREQTM 03:32 → EDBEDREQ 03:32 → ENRESERV 04:16
PROVIDERS: ADMIT Internal Medicine; ATTEND Internal Medicine
PROC: 5A09357 Assistance with Respiratory Ventilation, Less than 24 Consecutive Hours, Continuous Positive Airway Pressure (ICD-10-PCS; 2018-12-19)
PROC: 30233N1 Transfusion of Nonautologous Red Blood Cells into Peripheral Vein, Percutaneous Approach (ICD-10-PCS; principal; 2018-12-20)
DX: J96.00 Acute respiratory failure, unspecified whether with hypoxia or hypercapnia (principal); N17.0 Acute kidney failure with tubular necrosis; I50.23 Acute on chronic systolic (congestive) heart failure; E46 Unspecified protein-calorie malnutrition; J84.9 Interstitial pulmonary disease, unspecified; E11.51 Type 2 diabetes mellitus with diabetic peripheral angiopathy without gangrene; E11.65 Type 2 diabetes mellitus with hyperglycemia; E66.01 Morbid (severe) obesity due to excess calories; I25.10 Atherosclerotic heart disease of native coronary artery without angina pectoris; G47.33 Obstructive sleep apnea (adult) (pediatric); J44.9 Chronic obstructive pulmonary disease, unspecified; E87.5 Hyperkalemia; D64.9 Anemia, unspecified; E78.00 Pure hypercholesterolemia, unspecified; E78.5 Hyperlipidemia, unspecified; I25.5 Ischemic cardiomyopathy; L85.3 Xerosis cutis; N17.9 Acute kidney failure, unspecified; F14.10 Cocaine abuse, uncomplicated; R74.0 Nonspecific elevation of levels of transaminase and lactic acid dehydrogenase [LDH]; L57.0 Actinic keratosis; N18.9 Chronic kidney disease, unspecified; I13.0 Hypertensive heart and chronic kidney disease with heart failure and stage 1 through stage 4 chronic kidney disease, or unspecified chronic kidney disease; E11.22 Type 2 diabetes mellitus with diabetic chronic kidney disease; F12.90 Cannabis use, unspecified, uncomplicated; Z95.5 Presence of coronary angioplasty implant and graft; Z79.4 Long term (current) use of insulin; Z89.512 Acquired absence of left leg below knee; I25.2 Old myocardial infarction; Z99.81 Dependence on supplemental oxygen; Z79.899 Other long term (current) drug therapy; Z89.9 Acquired absence of limb, unspecified; Z68.43 Body mass index [BMI] 50.0-59.9, adult; Z79.82 Long term (current) use of aspirin; Z71.3 Dietary counseling and surveillance; Z72.0 Tobacco use
CPT/HCPCS: 36415; 36600; 71045; 76770; 80048; 80051; 80061; 80305; 82010; 82375; 82550; 82553; 82805; 82962; 83605; 83735; 83880; 84439; 84443; 84484; 86850; 86900; 86920; 93005; 93970; 94640; 94660; 99285; J1650; J1815; J1940; J2060; J2270; J2930; J3475; J7611; J7620; P9016

== ENCOUNTER 2019-02-03 01:44 | Inpatient (IN) | payer MEDICAID ==
[~2019-02-03] VITALS: Ht 182.9 cm; Wt 191.0 kg
[~2019-02-03 01:44] MED LIST changes: +LOSA50TA3 PO
[2019-02-03] MEDS ORDERED: ALBUTEROL (0.083%) 2.5MG/3ML NEB HHN STA ×2 (04:13→09:11)
[2019-02-03] MEDS ORDERED: IPRATROPIUM BROMIDE (0.02%) 0.5MG/2.5ML NEB HHN STA ×2 (04:13→09:12)
[2019-02-03 04:58] LABS: CHLORIDE 100 mEq/L (98-107)
[2019-02-03 05:21] LABS: BASOPHILS % 0.7 % (0.0-2.0); EOSINOPHILS % 3.2 % (0.0-5.0); HEMOGLOBIN. 8.5 g/dL (14.0-18.0); LYMPHOCYTES % 23.5 % (20.0-50.0); MEAN CORPUSCULAR HEMOGLOBIN 29.7 pg (28.0-32.0); MEAN CORPUSCULAR VOLUME 93.8 fL (80.0-94.0); MEAN PLATELET VOLUME 7.5 fl (7.4-10.4); MONOCYTES % 5.4 % (2.0-8.0); NEUTROPHILS % 67.2 % (40.0-76.0); PLATELET 358 x1000/uL (130-400); RED BLOOD CELL COUNT 2.88 mill/uL (4.7-6.1); RED CELL DISTRIBUTION WIDTH 15.4 % (11.6-14.6)
[2019-02-03] MEDS ORDERED: FUROSEMIDE 40MG/4ML VIAL IVP ONE (06:15)
[2019-02-03] MEDS ORDERED: ASPIRIN 325MG TABLET PO ONE (06:15)
[2019-02-03 11:00] VITALS: BP 141/95
[2019-02-03 11:15] VITALS: BP 141/95
[2019-02-03 12:00] VITALS: BP 136/83
[2019-02-03] MEDS ORDERED: FUROSEMIDE 100MG/10ML VIAL IVP NR (14:56)
[2019-02-03] MEDS ORDERED: CLONIDINE 0.1MG TABLET PO PRN (15:00)
[2019-02-03] MEDS ORDERED: HYDROCODONE/ACETAMINOPHEN 5/325MG TABLET PO PRN (15:00)
[2019-02-03] MEDS ORDERED: ONDANSETRON HCL 4MG/2ML INJ IV PRN (15:00)
[2019-02-03] MEDS ORDERED: DOCUSATE SODIUM 100MG CAPSULE PO PRN (15:00)
[2019-02-03] MEDS ORDERED: ACETAMINOPHEN 325MG TABLET PO PRN (15:00)
[2019-02-03] MEDS: FERROUS SULFATE 325MG TABLET PO SCH (15:45)
[2019-02-03] MEDS: LOSARTAN POTASSIUM 50 MG TABLET PO SCH (15:46)
[2019-02-03 16:00] VITALS: BP 105/47
[2019-02-03] MEDS: ENOXAPARIN 40MG/0.4ML SYR SUBCUT SCH (17:58)
[2019-02-03] MEDS: INS NPH/REG HM 70-30 100 UNITS/ML 10ML VIAL (HUMULIN 70-30) SUBCUT SCH (18:05)
[2019-02-03] MEDS ORDERED: DEXTROSE 50% WATER 50ML SYRINGE IV PRN (19:45)
[2019-02-03 20:00] VITALS: BP 96/57
[2019-02-03] MEDS: INSULIN LISPRO 100 UNITS/ML SUBCUT SCH (20:26)
[2019-02-03] MEDS: BLOOD SUGAR DIAGNOSTIC STRIP TEST SCH (20:26)
[2019-02-03] MEDS: GUAIFENESIN 200MG/10ML SUGAR FREE UDC PO PRN (20:26)
[2019-02-03] MEDS: ATORVASTATIN CALCIUM 40MG TABLET PO SCH (20:26)
[2019-02-03] MEDS: IPRATROPIUM/ALBUTEROL 0.5-3(2.5)MG/3ML NEB HHN SCH (20:40)
[2019-02-03] MEDS: CARVEDILOL 12.5MG TABLET PO SCH (20:43)
[2019-02-04] VITALS (9 sets, daily range): BP systolic 78–130; BP diastolic 39–74
[2019-02-04] MEDS: IPRATROPIUM/ALBUTEROL 0.5-3(2.5)MG/3ML NEB HHN SCH ×7 (00:17→23:29)
[2019-02-04] MEDS: GUAIFENESIN 200MG/10ML SUGAR FREE UDC PO PRN ×3 (04:21→21:11)
[2019-02-04 06:32] LABS: BASOPHILS % 0.7 % (0.0-2.0); EOSINOPHILS % 4.3 % (0.0-5.0); HEMATOCRIT. 24.7 % (42.0-52.0); HEMOGLOBIN. 7.9 g/dL (14.0-18.0); LYMPHOCYTES % 27.5 % (20.0-50.0); MEAN CORPUSCULAR HEMOGLOBIN 30.3 pg (28.0-32.0); MEAN CORPUSCULAR VOLUME 94.1 fL (80.0-94.0); MEAN PLATELET VOLUME 7.4 fl (7.4-10.4); MONOCYTES % 7.8 % (2.0-8.0); NEUTROPHILS % 59.7 % (40.0-76.0); PLATELET 323 x1000/uL (130-400); RED BLOOD CELL COUNT 2.63 mill/uL (4.7-6.1); RED CELL DISTRIBUTION WIDTH 15.1 % (11.6-14.6)
[2019-02-04] MEDS: BLOOD SUGAR DIAGNOSTIC STRIP TEST SCH ×4 (06:40→21:08)
[2019-02-04] MEDS: INSULIN LISPRO 100 UNITS/ML SUBCUT SCH ×4 (06:40→21:11)
[2019-02-04] MEDS ORDERED: FUROSEMIDE 40MG/4ML VIAL IVP SCH (09:00)
[2019-02-04] MEDS: CARVEDILOL 12.5MG TABLET PO SCH ×2 (09:14→21:00)
[2019-02-04] MEDS: OMEPRAZOLE 20MG CAPSULE EXTENDED RELEASE PO SCH (09:14)
[2019-02-04] MEDS: LOSARTAN POTASSIUM 50 MG TABLET PO SCH (09:15)
[2019-02-04] MEDS: FERROUS SULFATE 325MG TABLET PO SCH (09:15)
[2019-02-04] MEDS: INS NPH/REG HM 70-30 100 UNITS/ML 10ML VIAL (HUMULIN 70-30) SUBCUT SCH ×2 (09:20→18:48)
[2019-02-04] MEDS: ENOXAPARIN 40MG/0.4ML SYR SUBCUT SCH ×2 (09:27→21:03)
[2019-02-04] MEDS: THROAT LOZENGES-BENZOCAINE/MENTH/CETYLPYRD CL LOZENGES MM PRN ×2 (18:49→23:11)
[2019-02-04] MEDS: ATORVASTATIN CALCIUM 40MG TABLET PO SCH (21:01)
[2019-02-05] MEDS: THROAT LOZENGES-BENZOCAINE/MENTH/CETYLPYRD CL LOZENGES MM PRN ×4 (03:25→23:47)
[2019-02-05 04:00] VITALS: BP 96/68
[2019-02-05] MEDS: IPRATROPIUM/ALBUTEROL 0.5-3(2.5)MG/3ML NEB HHN SCH ×5 (04:10→21:01)
[2019-02-05] MEDS: BLOOD SUGAR DIAGNOSTIC STRIP TEST SCH ×4 (06:38→21:00)
[2019-02-05] MEDS: INSULIN LISPRO 100 UNITS/ML SUBCUT SCH ×4 (06:57→21:00)
[2019-02-05] MEDS: GUAIFENESIN 200MG/10ML SUGAR FREE UDC PO PRN ×4 (06:57→22:06)
[2019-02-05 08:00] VITALS: BP 116/62
[2019-02-05 08:02] LABS: BASOPHILS % 0.6 % (0.0-2.0); EOSINOPHILS % 5.2 % (0.0-5.0); HEMATOCRIT. 27.2 % (42.0-52.0); HEMOGLOBIN. 8.6 g/dL (14.0-18.0); LYMPHOCYTES % 32.2 % (20.0-50.0); MEAN CORPUSCULAR HEMOGLOBIN 29.8 pg (28.0-32.0); MEAN CORPUSCULAR VOLUME 94.3 fL (80.0-94.0); MEAN PLATELET VOLUME 7.8 fl (7.4-10.4); PLATELET 345 x1000/uL (130-400); RED BLOOD CELL COUNT 2.88 mill/uL (4.7-6.1); RED CELL DISTRIBUTION WIDTH 15.8 % (11.6-14.6)
[2019-02-05] MEDS: INS NPH/REG HM 70-30 100 UNITS/ML 10ML VIAL (HUMULIN 70-30) SUBCUT SCH ×2 (09:00→16:56)
[2019-02-05] MEDS: CARVEDILOL 12.5MG TABLET PO SCH ×2 (09:00→21:00)
[2019-02-05] MEDS: LOSARTAN POTASSIUM 25 MG TABLET PO SCH (09:00)
[2019-02-05] MEDS: FERROUS SULFATE 325MG TABLET PO SCH (09:20)
[2019-02-05] MEDS: OMEPRAZOLE 20MG CAPSULE EXTENDED RELEASE PO SCH (09:20)
[2019-02-05] MEDS: ENOXAPARIN 40MG/0.4ML SYR SUBCUT SCH ×2 (09:20→22:06)
[2019-02-05 12:00] VITALS: BP 118/72
[2019-02-05 16:00] VITALS: BP 117/80
[2019-02-05 20:00] VITALS: BP 101/72
[2019-02-05] MEDS: ATORVASTATIN CALCIUM 40MG TABLET PO SCH (22:06)
[2019-02-06] VITALS: BP 130/78
[2019-02-06] MEDS: IPRATROPIUM/ALBUTEROL 0.5-3(2.5)MG/3ML NEB HHN SCH ×6 (01:02→21:37)
[2019-02-06] MEDS ORDERED: ALPRAZOLAM 0.25 MG TABLET PO NR (02:00)
[2019-02-06 04:00] VITALS: BP 104/83
[2019-02-06] MEDS: INSULIN LISPRO 100 UNITS/ML SUBCUT SCH ×4 (06:10→21:00)
[2019-02-06] MEDS: BLOOD SUGAR DIAGNOSTIC STRIP TEST SCH ×4 (06:10→21:00)
[2019-02-06] MEDS: FAMOTIDINE 20MG TABLET PO SCH (06:10)
[2019-02-06] MEDS: FERROUS SULFATE 325MG TABLET PO SCH (07:52)
[2019-02-06] MEDS: GUAIFENESIN 200MG/10ML SUGAR FREE UDC PO PRN ×2 (07:52→20:30)
[2019-02-06] MEDS: LOSARTAN POTASSIUM 25 MG TABLET PO SCH (07:53)
[2019-02-06] MEDS: ENOXAPARIN 40MG/0.4ML SYR SUBCUT SCH ×2 (07:53→20:24)
[2019-02-06] MEDS: CARVEDILOL 12.5MG TABLET PO SCH ×2 (07:53→20:25)
[2019-02-06 08:00] VITALS: BP_SYST 105; BP_DIAS 62; BP_DIAS 63
[2019-02-06] MEDS: INS NPH/REG HM 70-30 100 UNITS/ML 10ML VIAL (HUMULIN 70-30) SUBCUT SCH ×2 (09:01→13:29)
[2019-02-06 10:58] LABS: BASOPHILS % 0.7 % (0.0-2.0); HEMATOCRIT. 26.5 % (42.0-52.0); HEMOGLOBIN. 8.6 g/dL (14.0-18.0); LYMPHOCYTES % 28.1 % (20.0-50.0); MEAN CORPUSCULAR HEMOGLOBIN 30.2 pg (28.0-32.0); MONOCYTES % 6.9 % (2.0-8.0); NEUTROPHILS % 60.3 % (40.0-76.0); PLATELET 362 x1000/uL (130-400); RED BLOOD CELL COUNT 2.85 mill/uL (4.7-6.1); RED CELL DISTRIBUTION WIDTH 15.7 % (11.6-14.6)
[2019-02-06 12:00] VITALS: BP 121/78
[2019-02-06 16:00] VITALS: BP 138/73
[2019-02-06 20:00] VITALS: BP 134/99
[2019-02-06] MEDS: ATORVASTATIN CALCIUM 40MG TABLET PO SCH (20:25)
[2019-02-06] MEDS: THROAT LOZENGES-BENZOCAINE/MENTH/CETYLPYRD CL LOZENGES MM PRN (20:30)
[2019-02-06] MEDS: ALPRAZOLAM 0.25 MG TABLET PO PRN (21:30)
[2019-02-07] VITALS: BP 126/74
[2019-02-07] MEDS: IPRATROPIUM/ALBUTEROL 0.5-3(2.5)MG/3ML NEB HHN SCH ×3 (01:30→09:45)
[2019-02-07] MEDS: THROAT LOZENGES-BENZOCAINE/MENTH/CETYLPYRD CL LOZENGES MM PRN (02:56)
[2019-02-07 04:00] VITALS: BP 103/74
[2019-02-07] MEDS: GUAIFENESIN 200MG/10ML SUGAR FREE UDC PO PRN ×2 (05:42→10:53)
[2019-02-07] MEDS: FAMOTIDINE 20MG TABLET PO SCH (05:43)
[2019-02-07] MEDS: ALPRAZOLAM 0.25 MG TABLET PO PRN (05:43)
[2019-02-07] MEDS: BLOOD SUGAR DIAGNOSTIC STRIP TEST SCH ×3 (05:49→16:45)
[2019-02-07] MEDS: INSULIN LISPRO 100 UNITS/ML SUBCUT SCH ×3 (05:49→17:15)
[2019-02-07 08:00] VITALS: BP 118/78
[2019-02-07] MEDS ORDERED: FUROSEMIDE 40MG TABLET PO SCH (09:00)
[2019-02-07] MEDS: CARVEDILOL 12.5MG TABLET PO SCH (09:00)
[2019-02-07] MEDS: LOSARTAN POTASSIUM 25 MG TABLET PO SCH (09:00)
[2019-02-07] MEDS: INS NPH/REG HM 70-30 100 UNITS/ML 10ML VIAL (HUMULIN 70-30) SUBCUT SCH ×2 (09:00→17:00)
[2019-02-07] MEDS: ENOXAPARIN 40MG/0.4ML SYR SUBCUT SCH (10:48)
[2019-02-07] MEDS: FERROUS SULFATE 325MG TABLET PO SCH (10:56)
[2019-02-07 12:00] VITALS: BP 137/91
[2019-02-07 15:44] VITALS: BP 137/91
[2019-02-07 16:00] VITALS: BP 108/67
== END 2019-02-07 17:51 | disposition home or self-care (01) | DRG 133 ==
LOC: ER 01:44 → 5WST 06:59 → EDBEDREQ 07:02 → EDBEDREQTM 07:02 → ENRESERV 08:15
PROVIDERS: ADMIT Internal Medicine; ATTEND Internal Medicine
DX: J96.20 Acute and chronic respiratory failure, unspecified whether with hypoxia or hypercapnia (principal); I50.23 Acute on chronic systolic (congestive) heart failure; E11.22 Type 2 diabetes mellitus with diabetic chronic kidney disease; E11.51 Type 2 diabetes mellitus with diabetic peripheral angiopathy without gangrene; I13.0 Hypertensive heart and chronic kidney disease with heart failure and stage 1 through stage 4 chronic kidney disease, or unspecified chronic kidney disease; E78.5 Hyperlipidemia, unspecified; I25.10 Atherosclerotic heart disease of native coronary artery without angina pectoris; I42.9 Cardiomyopathy, unspecified; G47.33 Obstructive sleep apnea (adult) (pediatric); N18.9 Chronic kidney disease, unspecified; Z89.512 Acquired absence of left leg below knee; Z95.5 Presence of coronary angioplasty implant and graft; Z99.81 Dependence on supplemental oxygen; Z79.4 Long term (current) use of insulin; Z79.899 Other long term (current) drug therapy
CPT/HCPCS: 36415; 71045; 80048; 80053; 82962; 83880; 84484; 85025; 93005; 93970; 94640; 94644; 99285; J1650; J1815; J1940; J7611; J7620

== ENCOUNTER 2019-02-15 23:12 | Inpatient (IN) | payer MEDICAID ==
[~2019-02-15] VITALS: Ht 182.9 cm; Wt 198.0 kg
[~2019-02-15 23:12] MED LIST changes: +OMEP20CA14 MT; -OMEP20CA5 MT
[2019-02-16] MEDS ORDERED: FUROSEMIDE 40MG/4ML VIAL IV ONE (00:30)
[2019-02-16 00:42] LABS: BASOPHILS % 0.6 % (0.0-2.0); EOSINOPHILS % 3.5 % (0.0-5.0); HEMATOCRIT. 27.2 % (42.0-52.0); HEMOGLOBIN. 8.7 g/dL (14.0-18.0); LYMPHOCYTES % 24.1 % (20.0-50.0); MEAN CORPUSCULAR HEMOGLOBIN 30.3 pg (28.0-32.0); MEAN CORPUSCULAR VOLUME 94.6 fL (80.0-94.0); MEAN PLATELET VOLUME 7.4 fl (7.4-10.4); MONOCYTES % 8.5 % (2.0-8.0); NEUTROPHILS % 63.3 % (40.0-76.0); PLATELET 369 x1000/uL (130-400); RED BLOOD CELL COUNT 2.87 mill/uL (4.7-6.1); RED CELL DISTRIBUTION WIDTH 16.5 % (11.6-14.6)
[2019-02-16 00:48] LABS: CHLORIDE 99 mEq/L (98-107)
[2019-02-16 00:49] LABS: INR 1.3; PROTHROMBIN TIME 13.5 sec (9.6-11.0)
[2019-02-16] MEDS ORDERED: HYDROCODONE/ACETAMINOPHEN 5/325MG TABLET PO ONE (01:45)
[2019-02-16] MEDS ORDERED: ONDANSETRON HCL 4MG/2ML INJ IV PRN (09:00)
[2019-02-16] MEDS ORDERED: DEXTROSE 50% WATER 50ML SYRINGE IV PRN (09:00)
[2019-02-16] MEDS: INSULIN GLARGINE UD 100 UNITS/ML SYR SUBCUT SCH ×2 (10:41→21:40)
[2019-02-16] MEDS: BLOOD SUGAR DIAGNOSTIC STRIP TEST SCH ×3 (12:52→21:20)
[2019-02-16] MEDS: INSULIN LISPRO 100 UNITS/ML SUBCUT SCH ×3 (13:19→21:40)
[2019-02-16] MEDS: ALPRAZOLAM 0.25 MG TABLET PO SCH ×2 (13:23→21:18)
[2019-02-16 15:08] VITALS: BP 111/79
[2019-02-16 16:00] VITALS: BP 111/75
[2019-02-16] MEDS: FUROSEMIDE 40MG/4ML VIAL IVP SCH (18:19)
[2019-02-16 18:57] LABS: *COCAINE SCREEN URINE PRESUMTIVE POSITIVE (NEGATIVE)
[2019-02-16 18:58] LABS: *AMPHETAMINES SCREEN URINE PRESUMTIVE POSITIVE (NEGATIVE); *BARBITURATES SCREEN URINE NEGATIVE (NEGATIVE); CANNABINOID URINE SCREEN NEGATIVE (NEGATIVE); METHADONE URINE SCREEN NEGATIVE (NEGATIVE); OPIATES URINE SCREEN PRESUMTIVE POSITIVE (NEGATIVE); PHENCYCLIDINE URINE SCREEN NEGATIVE (NEGATIVE)
[2019-02-16 18:59] LABS: *BENZODIAZEPINES SCREEN URINE PRESUMTIVE POSITIVE (NEGATIVE)
[2019-02-16 19:57] LABS: HEPATITIS B SURFACE ANTIGEN NEGATIVE
[2019-02-16] MEDS: BUDESONIDE 0.5MG/2ML NEB HHN SCH (20:24)
[2019-02-16 20:25] VITALS: BP 136/83
[2019-02-16 20:27] LABS: HEPATITIS A AB IGM NEGATIVE (NEGATIVE)
[2019-02-17] VITALS: BP 109/78
[2019-02-17 04:00] VITALS: BP 121/85
[2019-02-17] MEDS: BLOOD SUGAR DIAGNOSTIC STRIP TEST SCH ×4 (06:34→21:44)
[2019-02-17] MEDS: FUROSEMIDE 40MG/4ML VIAL IVP SCH ×2 (06:48→18:23)
[2019-02-17] MEDS: INSULIN LISPRO 100 UNITS/ML SUBCUT SCH ×4 (07:48→21:44)
[2019-02-17 07:54] LABS: BASOPHILS % 0.7 % (0.0-2.0); EOSINOPHILS % 4.1 % (0.0-5.0); HEMATOCRIT. 26.3 % (42.0-52.0); HEMOGLOBIN. 8.5 g/dL (14.0-18.0); LYMPHOCYTES % 30.3 % (20.0-50.0); MEAN CORPUSCULAR HEMOGLOBIN 30.6 pg (28.0-32.0); MEAN CORPUSCULAR VOLUME 94.4 fL (80.0-94.0); MEAN PLATELET VOLUME 7.4 fl (7.4-10.4); MONOCYTES % 10.6 % (2.0-8.0); NEUTROPHILS % 54.3 % (40.0-76.0); PLATELET 377 x1000/uL (130-400); RED BLOOD CELL COUNT 2.78 mill/uL (4.7-6.1); RED CELL DISTRIBUTION WIDTH 16.8 % (11.6-14.6)
[2019-02-17 08:00] VITALS: BP 126/99
[2019-02-17] MEDS: ALPRAZOLAM 0.25 MG TABLET PO SCH ×2 (08:32→18:23)
[2019-02-17] MEDS: INSULIN GLARGINE UD 100 UNITS/ML SYR SUBCUT SCH ×2 (10:00→22:59)
[2019-02-17 12:00] VITALS: BP 138/87
[2019-02-17 16:00] VITALS: BP 111/79
[2019-02-17 20:00] VITALS: BP 122/84
[2019-02-18] VITALS: BP 113/82
[2019-02-18 04:00] VITALS: BP 123/76
[2019-02-18] MEDS: BLOOD SUGAR DIAGNOSTIC STRIP TEST SCH ×4 (07:00→20:53)
[2019-02-18] MEDS: FUROSEMIDE 40MG/4ML VIAL IVP SCH ×2 (07:00→18:16)
[2019-02-18] MEDS: INSULIN LISPRO 100 UNITS/ML SUBCUT SCH ×4 (07:01→20:53)
[2019-02-18 08:00] VITALS: BP 117/77
[2019-02-18] MEDS: BUDESONIDE 0.5MG/2ML NEB HHN SCH ×2 (08:35→20:02)
[2019-02-18] MEDS: ALPRAZOLAM 0.25 MG TABLET PO SCH ×2 (09:00→17:00)
[2019-02-18 09:54] LABS: BASOPHILS % 0.8 % (0.0-2.0); EOSINOPHILS % 4.6 % (0.0-5.0); HEMATOCRIT. 28.7 % (42.0-52.0); HEMOGLOBIN. 9.2 g/dL (14.0-18.0); LYMPHOCYTES % 33.2 % (20.0-50.0); MEAN CORPUSCULAR HEMOGLOBIN 30.5 pg (28.0-32.0); MEAN CORPUSCULAR VOLUME 95.3 fL (80.0-94.0); MEAN PLATELET VOLUME 7.6 fl (7.4-10.4); MONOCYTES % 9.9 % (2.0-8.0); NEUTROPHILS % 51.5 % (40.0-76.0); PLATELET 359 x1000/uL (130-400); RED BLOOD CELL COUNT 3.01 mill/uL (4.7-6.1); RED CELL DISTRIBUTION WIDTH 16.7 % (11.6-14.6)
[2019-02-18] MEDS: INSULIN GLARGINE UD 100 UNITS/ML SYR SUBCUT SCH ×2 (11:21→21:41)
[2019-02-18 12:00] VITALS: BP 125/88
[2019-02-18] MEDS ORDERED: SODIUM POLYSTYRENE SULFONATE 15 G/60 ML BOT PO NR (12:00)
[2019-02-18] MEDS: DOCUSATE SODIUM 250MG CAPSULE PO SCH (14:05)
[2019-02-18 16:00] VITALS: BP 140/75
[2019-02-18 20:00] VITALS: BP_SYST 123; BP_SYST 126; BP_DIAS 61; BP_DIAS 64
[2019-02-18] MEDS ORDERED: ALPRAZOLAM 0.25 MG TABLET PO NR (22:00)
[2019-02-19] VITALS: BP 115/74
[2019-02-19 04:00] VITALS: BP 119/80
[2019-02-19 06:11] LABS: BASOPHILS % 0.7 % (0.0-2.0); EOSINOPHILS % 5.6 % (0.0-5.0); HEMATOCRIT. 27.7 % (42.0-52.0); HEMOGLOBIN. 8.9 g/dL (14.0-18.0); LYMPHOCYTES % 30.7 % (20.0-50.0); MEAN CORPUSCULAR HEMOGLOBIN 30.6 pg (28.0-32.0); MEAN CORPUSCULAR VOLUME 95.6 fL (80.0-94.0); MEAN PLATELET VOLUME 7.4 fl (7.4-10.4); MONOCYTES % 10.8 % (2.0-8.0); NEUTROPHILS % 52.2 % (40.0-76.0); PLATELET 408 x1000/uL (130-400); RED CELL DISTRIBUTION WIDTH 17.4 % (11.6-14.6)
[2019-02-19] MEDS: BLOOD SUGAR DIAGNOSTIC STRIP TEST SCH ×4 (06:20→21:06)
[2019-02-19] MEDS: FUROSEMIDE 40MG/4ML VIAL IVP SCH ×2 (06:34→17:29)
[2019-02-19] MEDS: INSULIN LISPRO 100 UNITS/ML SUBCUT SCH ×4 (06:59→21:05)
[2019-02-19 08:00] VITALS: BP 125/89
[2019-02-19] MEDS: DOCUSATE SODIUM 250MG CAPSULE PO SCH (08:35)
[2019-02-19] MEDS: ALPRAZOLAM 0.25 MG TABLET PO SCH ×2 (08:35→17:29)
[2019-02-19] MEDS: INSULIN GLARGINE UD 100 UNITS/ML SYR SUBCUT SCH ×2 (10:00→21:06)
[2019-02-19] MEDS: BUDESONIDE 0.5MG/2ML NEB HHN SCH ×2 (10:13→20:14)
[2019-02-19] MEDS: IPRATROPIUM/ALBUTEROL 0.5-3(2.5)MG/3ML NEB HHN PRN ×2 (10:13→14:26)
[2019-02-19] MEDS: ACETAMINOPHEN 325MG TABLET PO PRN (10:26)
[2019-02-19 10:59] LABS: BG BASE EXCESS 5.4 mmol/L (-2.0-2.0); BG CARBOXYHEMOGLOBIN 0.7 % (0.5-1.5); BG DEOXYHEMOGLOBIN 10.9 % (0.0-5.0); BG FRACTION INSPIRED OXYGEN 21; BG METHEMOGLOBIN 0.1 % (0.0-1.5); BG OXYHEMOGLOBIN 88.3 % (94.0-97.0); BG PCO2 50.7 mmHg (35.0-45.0); BG PH 7.404 (7.350-7.450); BG PO2 56.6 mmHg (75.0-100.0); BG SAMPLE SITE RIGHT RADIAL; BG TOTAL HEMOGLOBIN 9.8 g/dL (12.0-18.0); BG VENT MODE ROOM AIR
[2019-02-19 12:00] VITALS: BP 118/78
[2019-02-19] MEDS: NYSTATIN POWDER 15GM TOP SCH ×2 (13:00→17:30)
[2019-02-19 16:00] VITALS: BP 124/67
[2019-02-19 20:00] VITALS: BP 113/74
[2019-02-19] MEDS: GUAIFENESIN 600MG ER TABLET PO SCH (21:07)
[2019-02-20] VITALS: BP 109/77
[2019-02-20] MEDS: LORAZEPAM 2MG/ML CPJ IV PRN (02:03)
[2019-02-20 04:00] VITALS: BP 105/71
[2019-02-20] MEDS: BLOOD SUGAR DIAGNOSTIC STRIP TEST SCH ×4 (06:44→21:18)
[2019-02-20] MEDS: FUROSEMIDE 40MG/4ML VIAL IVP SCH ×2 (06:44→17:16)
[2019-02-20] MEDS: INSULIN LISPRO 100 UNITS/ML SUBCUT SCH ×4 (09:06→21:00)
[2019-02-20] MEDS: DOCUSATE SODIUM 250MG CAPSULE PO SCH (09:33)
[2019-02-20] MEDS: ALPRAZOLAM 0.25 MG TABLET PO SCH ×2 (09:33→17:16)
[2019-02-20] MEDS: GUAIFENESIN 600MG ER TABLET PO SCH ×2 (09:34→21:35)
[2019-02-20] MEDS: NYSTATIN POWDER 15GM TOP SCH ×3 (09:38→17:00)
[2019-02-20] MEDS: INSULIN GLARGINE UD 100 UNITS/ML SYR SUBCUT SCH ×2 (09:40→21:18)
[2019-02-20 20:00] VITALS: BP 150/104
[2019-02-20] MEDS: ZOLPIDEM TARTRATE 5MG TABLET PO PRN (21:35)
[2019-02-21 00:25] VITALS: BP 105/74
[2019-02-21 04:00] VITALS: BP 116/69
[2019-02-21] MEDS: BLOOD SUGAR DIAGNOSTIC STRIP TEST SCH ×4 (06:34→21:14)
[2019-02-21] MEDS: FUROSEMIDE 40MG/4ML VIAL IVP SCH ×2 (06:34→17:15)
[2019-02-21] MEDS: INSULIN LISPRO 100 UNITS/ML SUBCUT SCH ×4 (07:07→21:13)
[2019-02-21] MEDS: IPRATROPIUM/ALBUTEROL 0.5-3(2.5)MG/3ML NEB HHN PRN ×3 (09:19→20:55)
[2019-02-21] MEDS: ACETAMINOPHEN 325MG TABLET PO PRN ×2 (09:30→21:07)
[2019-02-21] MEDS: ALPRAZOLAM 0.25 MG TABLET PO SCH (09:30)
[2019-02-21] MEDS: GUAIFENESIN 600MG ER TABLET PO SCH ×2 (09:30→21:07)
[2019-02-21] MEDS: DOCUSATE SODIUM 250MG CAPSULE PO SCH (09:31)
[2019-02-21] MEDS: NYSTATIN POWDER 15GM TOP SCH ×3 (09:31→17:55)
[2019-02-21] MEDS: INSULIN GLARGINE UD 100 UNITS/ML SYR SUBCUT SCH ×2 (09:32→21:13)
[2019-02-21 16:00] VITALS: BP 101/79
[2019-02-21 20:00] VITALS: BP 101/77
[2019-02-21] MEDS: ZOLPIDEM TARTRATE 5MG TABLET PO PRN (21:07)
[2019-02-22] VITALS: BP 110/78
[2019-02-22 04:00] VITALS: BP 120/87
[2019-02-22] MEDS: BLOOD SUGAR DIAGNOSTIC STRIP TEST SCH ×4 (06:28→21:31)
[2019-02-22] MEDS: INSULIN LISPRO 100 UNITS/ML SUBCUT SCH ×4 (06:28→21:00)
[2019-02-22] MEDS: DOCUSATE SODIUM 250MG CAPSULE PO SCH (09:00)
[2019-02-22] MEDS: GUAIFENESIN 600MG ER TABLET PO SCH ×2 (09:00→21:34)
[2019-02-22] MEDS: FUROSEMIDE 40MG TABLET PO SCH ×2 (09:00→21:34)
[2019-02-22] MEDS: INSULIN GLARGINE UD 100 UNITS/ML SYR SUBCUT SCH ×2 (09:01→21:37)
[2019-02-22] MEDS: NYSTATIN POWDER 15GM TOP SCH ×3 (09:01→19:04)
[2019-02-22 12:00] VITALS: BP 123/80
[2019-02-22 16:00] VITALS: BP 117/73
[2019-02-22 20:00] VITALS: BP 112/76
[2019-02-22] MEDS: ZOLPIDEM TARTRATE 5MG TABLET PO PRN (21:34)
[2019-02-22] MEDS: LORAZEPAM 2MG/ML CPJ IV PRN (23:57)
[2019-02-23 00:40] VITALS: BP 102/70
[2019-02-23 04:00] VITALS: BP 125/90
[2019-02-23] MEDS: BLOOD SUGAR DIAGNOSTIC STRIP TEST SCH ×4 (06:52→20:32)
[2019-02-23] MEDS: INSULIN LISPRO 100 UNITS/ML SUBCUT SCH ×4 (07:50→20:47)
[2019-02-23 08:00] VITALS: BP 107/79
[2019-02-23] MEDS: GUAIFENESIN 600MG ER TABLET PO SCH ×2 (08:36→20:32)
[2019-02-23] MEDS: DOCUSATE SODIUM 250MG CAPSULE PO SCH (08:37)
[2019-02-23] MEDS: ACETAMINOPHEN 325MG TABLET PO PRN ×2 (08:37→20:32)
[2019-02-23] MEDS: FUROSEMIDE 40MG TABLET PO SCH ×2 (08:37→20:32)
[2019-02-23] MEDS: NYSTATIN POWDER 15GM TOP SCH ×3 (08:45→17:39)
[2019-02-23] MEDS: INSULIN GLARGINE UD 100 UNITS/ML SYR SUBCUT SCH ×2 (10:00→22:00)
[2019-02-23 12:00] VITALS: BP 116/74
[2019-02-23 16:31] VITALS: BP 107/74
[2019-02-23 20:00] VITALS: BP 109/77
[2019-02-23] MEDS: ZOLPIDEM TARTRATE 5MG TABLET PO PRN (20:32)
[2019-02-24] VITALS: BP 122/81
[2019-02-24 04:00] VITALS: BP 96/57
[2019-02-24] MEDS: INSULIN LISPRO 100 UNITS/ML SUBCUT SCH ×4 (07:50→20:50)
[2019-02-24] MEDS: BLOOD SUGAR DIAGNOSTIC STRIP TEST SCH ×4 (07:51→20:49)
[2019-02-24 08:00] VITALS: BP 121/87
[2019-02-24] MEDS: FUROSEMIDE 40MG TABLET PO SCH ×2 (08:29→21:08)
[2019-02-24] MEDS: ACETAMINOPHEN 325MG TABLET PO PRN ×2 (08:29→17:14)
[2019-02-24] MEDS: GUAIFENESIN 600MG ER TABLET PO SCH ×2 (08:29→21:08)
[2019-02-24] MEDS: DOCUSATE SODIUM 250MG CAPSULE PO SCH (08:30)
[2019-02-24] MEDS: NYSTATIN POWDER 15GM TOP SCH ×3 (09:37→17:17)
[2019-02-24] MEDS: INSULIN GLARGINE UD 100 UNITS/ML SYR SUBCUT SCH ×2 (10:00→21:11)
[2019-02-24 10:02] LABS: BG BASE EXCESS 6.9 mmol/L (-2.0-2.0); BG CARBOXYHEMOGLOBIN 0.8 % (0.5-1.5); BG DEOXYHEMOGLOBIN 14.8 % (0.0-5.0); BG FRACTION INSPIRED OXYGEN 21; BG HCO3 ACT 33.1 mmol/L (22.0-26.0); BG METHEMOGLOBIN 0.1 % (0.0-1.5); BG OXYGEN SATURATION 85.1 % (92.0-98.5); BG OXYHEMOGLOBIN 84.3 % (94.0-97.0); BG PCO2 56.1 mmHg (35.0-45.0); BG PH 7.389 (7.350-7.450); BG PO2 52.3 mmHg (75.0-100.0); BG SAMPLE SITE RIGHT RADIAL; BG TOTAL HEMOGLOBIN 10.1 g/dL (12.0-18.0); BG VENT MODE ROOM AIR
[2019-02-24 12:00] VITALS: BP 109/73
[2019-02-24 16:00] VITALS: BP 113/74
[2019-02-24 20:43] VITALS: BP 104/83
[2019-02-25] VITALS: BP 99/76
[2019-02-25] MEDS: ZOLPIDEM TARTRATE 5MG TABLET PO PRN (02:18)
[2019-02-25] MEDS: ACETAMINOPHEN 325MG TABLET PO PRN (02:18)
[2019-02-25] MEDS ORDERED: LORAZEPAM 2MG/ML CPJ IV PRN (03:30)
[2019-02-25] MEDS: HYDROCODONE/ACETAMINOPHEN 10/325MG TABLET PO PRN ×2 (03:35→15:31)
[2019-02-25 04:00] VITALS: BP 108/59
[2019-02-25] MEDS: BLOOD SUGAR DIAGNOSTIC STRIP TEST SCH ×4 (06:56→20:41)
[2019-02-25] MEDS: INSULIN LISPRO 100 UNITS/ML SUBCUT SCH ×4 (07:50→20:41)
[2019-02-25 08:00] VITALS: BP 115/85
[2019-02-25] MEDS: DOCUSATE SODIUM 250MG CAPSULE PO SCH (09:00)
[2019-02-25] MEDS: FUROSEMIDE 40MG TABLET PO SCH ×2 (10:04→20:42)
[2019-02-25] MEDS: GUAIFENESIN 600MG ER TABLET PO SCH ×2 (10:05→20:42)
[2019-02-25] MEDS: NYSTATIN POWDER 15GM TOP SCH ×3 (10:15→17:29)
[2019-02-25] MEDS: INSULIN GLARGINE UD 100 UNITS/ML SYR SUBCUT SCH ×2 (10:26→21:59)
[2019-02-25 12:00] VITALS: BP 120/73
[2019-02-25 16:00] VITALS: BP 105/78
[2019-02-25 20:31] VITALS: BP 109/67
[2019-02-26 00:34] VITALS: BP 107/66
== END 2019-02-26 02:34 | disposition expired | DRG 133 ==
LOC: ER 23:12 → 6WST 02-16 01:07 → EDBEDREQTM 02-16 01:09 → EDBEDREQ 02-16 01:09 → ENRESERV 02-16 13:29 → 6WST 02-25 00:32
PROVIDERS: ADMIT Internal Medicine; ATTEND Internal Medicine
PROC: 5A09357 Assistance with Respiratory Ventilation, Less than 24 Consecutive Hours, Continuous Positive Airway Pressure (ICD-10-PCS; principal; 2019-02-16)
PROC: 5A09357 Assistance with Respiratory Ventilation, Less than 24 Consecutive Hours, Continuous Positive Airway Pressure (ICD-10-PCS; 2019-02-18)
PROC: 5A09357 Assistance with Respiratory Ventilation, Less than 24 Consecutive Hours, Continuous Positive Airway Pressure (ICD-10-PCS; 2019-02-19)
PROC: 5A09357 Assistance with Respiratory Ventilation, Less than 24 Consecutive Hours, Continuous Positive Airway Pressure (ICD-10-PCS; 2019-02-19)
PROC: 5A09357 Assistance with Respiratory Ventilation, Less than 24 Consecutive Hours, Continuous Positive Airway Pressure (ICD-10-PCS; 2019-02-20)
PROC: 5A1935Z Respiratory Ventilation, Less than 24 Consecutive Hours (ICD-10-PCS; 2019-02-23)
PROC: 5A09457 Assistance with Respiratory Ventilation, 24-96 Consecutive Hours, Continuous Positive Airway Pressure (ICD-10-PCS; 2019-02-23)
PROC: 5A12012 Performance of Cardiac Output, Single, Manual (ICD-10-PCS; 2019-02-26)
PROC: 0BH17EZ Insertion of Endotracheal Airway into Trachea, Via Natural or Artificial Opening (ICD-10-PCS; 2019-02-26)
DX: J96.20 Acute and chronic respiratory failure, unspecified whether with hypoxia or hypercapnia (principal); I50.23 Acute on chronic systolic (congestive) heart failure; L89.153 Pressure ulcer of sacral region, stage 3; N17.9 Acute kidney failure, unspecified; E11.22 Type 2 diabetes mellitus with diabetic chronic kidney disease; E11.51 Type 2 diabetes mellitus with diabetic peripheral angiopathy without gangrene; I13.0 Hypertensive heart and chronic kidney disease with heart failure and stage 1 through stage 4 chronic kidney disease, or unspecified chronic kidney disease; I46.9 Cardiac arrest, cause unspecified; E11.65 Type 2 diabetes mellitus with hyperglycemia; E44.1 Mild protein-calorie malnutrition; I42.8 Other cardiomyopathies; E66.01 Morbid (severe) obesity due to excess calories; I44.0 Atrioventricular block, first degree; I34.0 Nonrheumatic mitral (valve) insufficiency; J44.9 Chronic obstructive pulmonary disease, unspecified; N18.9 Chronic kidney disease, unspecified; I25.10 Atherosclerotic heart disease of native coronary artery without angina pectoris; G47.33 Obstructive sleep apnea (adult) (pediatric); F15.90 Other stimulant use, unspecified, uncomplicated; F14.90 Cocaine use, unspecified, uncomplicated; E78.5 Hyperlipidemia, unspecified; F17.210 Nicotine dependence, cigarettes, uncomplicated; I25.5 Ischemic cardiomyopathy; L89.899 Pressure ulcer of other site, unspecified stage; E87.5 Hyperkalemia; D53.9 Nutritional anemia, unspecified; Z68.43 Body mass index [BMI] 50.0-59.9, adult; Z89.512 Acquired absence of left leg below knee; Z95.5 Presence of coronary angioplasty implant and graft; Z99.81 Dependence on supplemental oxygen; Z89.612 Acquired absence of left leg above knee; Z71.89 Other specified counseling; Z71.51 Drug abuse counseling and surveillance of drug abuser
CPT/HCPCS: 36415; 36600; 71045; 72170; 76700; 80048; 80053; 80305; 82375; 82805; 82962; 83735; 83880; 84134; 84484; 85025; 86705; 86709; 86803; 87340; 93005; 94640; 94660; 97163; 97530; 99285; J1815; J1940; J2060; J7620; J7626